=== PATIENT | male | born 1975 | race Caucasian/White ===

== ENCOUNTER → 2016-05-30 | Outpatient (CLI) | payer MEDICARE, MEDICAID ==
[~2016-05-30] MED LIST: ACET50TA PO; ADVA115INH INH; ALBU0.084 INH; DEPA125C PO; KEPP500T5 PO; MIRA33504 PO; NASOCORT AQ; OMEP40CA2 PO; PROAAER INH; SYNT88TA2 PO
== END ==
LOC: M LAB 11:57
PROVIDERS: ATTEND Physician Assistant Medical
DX: Z79.899 Other long term (current) drug therapy (principal)

== ENCOUNTER → 2016-10-21 | Outpatient (CLI) | payer MEDICARE, MEDICAID | LOC: M LAB 10:19 | PROVIDERS: ATTEND Physician Assistant Medical | DX: R56.9 Unspecified convulsions (principal) ==

== ENCOUNTER → 2016-10-30 | Outpatient (CLI) | payer MEDICARE, MEDICAID ==
--- NOTE | 2016-11-29 00:47 | ECWPNPC ---
PATIENT NAME: ANISH MOTA : 1975 GENDER: MALE VISIT DATE: 10/30/2016 DISCHARGE DATE: 10/30/16 1507 VISIT LOCKED DATE TIME: PHYSICIAN: JOSE MCDONOUGH RESOURCE: JOSE MCDONOUGH REASON FOR APPOINTMENT 1. LOW BACK PAIN HISTORY OF PRESENT ILLNESS TODAY'S VISIT: NOTES: REFERRED BY Yesy SPRINGER PA-C AT [facility] FOR LOW BACK PAIN.WAS PREVIOUSLY SEEN BY Yesy ENGLISH HERE AT THE PAIN CLINIC FOR THIS PROBLEM ON 09/21/15. HE DID NOT RETURN FOR HISFOLLOWUP AND THOUGHT WE COULD NOT DO ANYTHING TO HELP. HAS HAD INCREASED PAIN OVER THE LAST YEAR. WORSE WITH PROLONGED WALKING, PROLONGED STANDING, PROLONGED SITTING. EVER IS CENTERD ACROSS THE BACK WITH RADIATION TO LEFT LEG TO LEVEL OF KNEE. DEV N IN LEFT LEG TO FOOT. IS HAVING WEAKNESS IN LEFT LEG WHICH SEEMS TO BE GETTING WORSE. NO RECENT FALLS. NO B/B ISSUESNO PT, NO CHIRO, NO INJECTION TX. HEAT CAN HELP. SLEEP IS AFFECTS WHEN ATTEMPTING TO TURN OVER. . NEW PATIENT CONSULT: WHEN DID YOUR PAIN FIRST START? . BRIEFLY DESCRIBE HOW YOUR PAIN STARTED? . HOW DOES YOUR PAIN CHANGE WITH TIME? . DOES YOUR PAIN AWAKEN YOU FROM SLEEP? . HOW MANY HOURS OF SLEEP DO YOU NORMALLY GET? . ANY DIAGNOSTIC TESTING? . FACILITY WHERE TESTS WERE DONE? ____. PAIN TREATMENT TREATMENT YES CANCER HAVE YOU EVER HAD ANY TYPE OF CANCER?NO NO. PAIN SCREENING: PATIENT HAS A COMPLAINT OF ACUTE OR CHRONIC PAIN :YES FALL RISK SCREENING: SCREENING :NO FALLS IN THE PAST YEAR VELIZ INVENTORY: QUESTIONNAIRE ASSESSEDNO DID NOT COMPLETE INVENTORY SCORE VALUE CALCULATED NO DENIES SUICIDAL OR HOMICIDAL IDEATION CURRENT MEDICATIONS TAKING DEPAKOTE SPRINKLES 125 MG CAPSULE SPRINKLE 4 CAPSULES P.O. IN THE A.M. 4 CAPS AT NOON, 4 CAPS AT DINNER, 4 CAPS AT BEDTIME (DR. WAGNER) TAKING GLUCOMETER 1 METER TEST WHEN DIZZINESS TOPICAL USE WITH STRIPS WITH DIZZINESS TAKING LANCET DEVICE 1 LANCET LANCET 1 LANCET WITH BLOOD SUGAR TESTING INTRADERMALLY WITH EPISODES TAKING BLOOD GLUCOSE TEST STRIP 1 STRIP WITH METER WITH METER WHEN FEELING POORLY DX 780.4 TAKING OMEPRAZOLE 40MG 40 MG TABLET 1 TAB ORAL ONCE A DAY TAKING BREO ELLIPTA 100-25 MCG/INH AEROSOL POWDER BREATH ACTIVATED 1 PUFF INHALATION ONCE A DAY TAKING NASACORT AQ 55 MCG/ACT AEROSOL SOLUTION 2 PUFFS IN EACH NOSTRIL NASALLY ONCE A DAY NEEDED TAKING ALBUTEROL SULFATE (2.5 MG/3ML) 0.083% NEBULIZATION SOLUTION 3 ML PULMONARY INHALATION THREE TIMES A DAY TAKING PROAIR HFA 108 (90 BASE) MCG/ACT AEROSOL SOLUTION 2 PUFFS NEEDED INHALATION QID PRN DISCONTINUED KEPPRA [address] WAGNER 1 TABLET ORALLY TWICE DAILY (BERNARD) DISCONTINUED MIRALAX . PACKET 1 PACKET MIXED WITH 8 OUNCES OF FLUID ORALLY ONCE A DAY DISCONTINUED IBUPROFEN 600 MG TABLET 1 TABLET ORALLY THREE TIMES A DAY NEEDED DISCONTINUED BACLOFEN 10 MG TABLET 1 TABLET WITH FOOD OR MILK ORALLY THREE TIMES A DAY DISCONTINUED MELOXICAM 15 MG TABLET 1 TABLET ORALLY ONCE A DAY MEDICATION LIST REVIEWED AND RECONCILED WITH THE PATIENT PAST MEDICAL HISTORY ASTHMA EPILEPSY- F/W DR. WAGNER CELLULITIS OF LEFT PRE-AURICULAR REGION RESOLVED S/P SEBACEOUS CYST REMOVAL HEMMORRHOIDS HYPOTHYROIDISM HYPOGLYCEMIC EPISODES W/O HYPERGLYCEMIA MIGRAINE CERVICALGIA LOW BACK PAIN ALLERGIES DILANTIN: RASH: ALLERGY CODEINE PHOSPHATE (FOR ALLERGIES USE ONLY): RASH: ALLERGY VICODIN: NAUSEA/VOMITING: CONTRAINDICATION SURGICAL HISTORY DOUBLE HERNIA REPAIR 2012 LEFT KNEE MNISCUS REPAIR 2014 FAMILY HISTORY FATHER: ALIVE 71 YRS MOTHER: ALIVE 68 YRS, DIAGNOSED WITH CANCER 2 BROTHER(S) - HEALTHY. SOCIAL HISTORY GENERAL: TOBACCO USE ARE YOU A:NONSMOKER ALCOHOL SCREENING POINTS1 INTERPRETATIONNEGATIVE RECREATIONAL DRUG USE DRUG USE?NO CAFFEINE CAFFEINE USE?YES HOW OFTEN AND HOW MUCH? COFFEE DAILY LEARNING BARRIERS / SPECIAL NEEDS BARRIERS TO LEARNING?NO HEARING IMPAIRED?NO VISION IMPAIRED?YES : CORRECTIVE LENSES READINESS TO LEARN?YES LEARNING PREFERENCES?NO SPECIAL DEVICES?NO PAIN CLINIC PFS, CLERGY, PUBLIC HEALTH REFERRALS PFS REFERRAL NEEDED?NO CLERGY REFERRAL NEEDED?NO PUBLIC HEALTH REFERRAL NEEDED?NO WAS THE PROVIDER NOTIFIED OF ANY PERTINENT INFO?NO HAS THE PATIENT BEEN EDUCATED REGARDING HIS/HER PLAN OF CARE?YES HAS THE PATIENT BEEN EDUCATED REGARDING PAIN, THE RISK FOR PAIN, THE IMPORTANCE OF EFFECTIVE PAIN MANAGEMENT, AND THE PAIN ASSESSMENT PROCESS?YES PATIENT: ____. ADVANCE DIRECTIVES HEALTH CARE PROXY?NO WOULD YOU LIKE MORE INFORMATION?NO LIVE ALONE. HOSPITALIZATION/MAJOR DIAGNOSTIC PROCEDURE DENIES PAST HOSPITALIZATION REVIEW OF SYSTEMS REVIEWED BY: PROVIDER: JOSE MORA . CONSTITUTIONAL: ANY CHANGE IN YOUR MEDICAL CONDITION? NO . CHILLS NO . FEVER NO . INFECTION: DO YOU HAVE NEW INFECTIONS? NO . DO YOU HAVE HISTORY OF MRSA? NO . MUSCULOSKELETAL: ANY NEW PATTERNS OF PAIN OR NUMBNESS? NO . SYTEMIC LUPUS NO . GASTROENTEROLOGY: ANY NEW CHANGE IN BOWEL CONTROL? NO . BARRETTS ESOPHAGUS NO . CIRRHOSIS NO . HEPATITIS NO . LIVER FAILURE NO . ACID REFLUX YES, ON MEDICATION . UNEXPLAINED WEIGHT LOSS NO . GENITOURINARY: ANY NEW CHANGE IN BLADDER CONTROL? NO . IS THERE A CHANCE YOU COULD BE ? NO . HEMATOLOGY/LYMPH: DO YOU TAKE ANY BLOOD THINNERS? (FOR EXAMPLE- COUMADIN, PLAVIX, AGGRENOX, PLATEL, PRADAXA, OR XARELTO) NO . WHEN WAS YOUR LAST DOSE? DATE: TIME: . LOW PLATELET COUNT NO . SICKLE CELL DISEASE NO . VON WILLIEBRANDS NO . FACTOR V LEIDEN NO . THALLASEMIA NO . ANEMIA NO . EASY BRUISING NO . NEUROLOGY: ANY NEW SEIZURES? HX OF SEIZURES - FOLLOWED CLOSELY BY NEUROLOGY . MYAASTHENIA GRAVIS NO . CARDIOLOGY: DO YOU HAVE A PACEMAKER OR DEFIBRILLATOR? NO . ANGINA NO . HEART ATTACK NO . HEART SURGERY NO . CONGESTIVE HEART FAILURE/FLUID OVERLOAD NO . CHEST PAIN NO . HIGH BLOOD PRESSURE NO . IRREGULAR HEART BEAT NO . RESPIRATORY: HAVE YOU BEEN SICK IN THE PAST WEEK? NO . FEVER NO . FLU LIKE SYMPTOMS? NO . CPAP NO . BYPAP NO . ASTHMA YES - ON INHALER, AND MEDS UNDER GOOD CONTROL . EMPHYSEMA NO . CHRONIC LUNG DISEASES NO . SHORTNESS OF BREATH ON EXERTION NO . DO YOU USE ANY TYPE OF TOBACCO (SMOKE, SMOKELESS, CHEW)? NO . COUGH NO . SNORING NO . INTEGUMENTARY: DO YOU HAVE ANY RASHES OR OPEN SORES? NO . ALLERGIC/IMMUNO: ARE YOU ALLERGIC TO SHELLFISH OR IV DYE? NO . ANY NEW ALLERGIES? NO . PSYCHIATRIC: DO YOU HAVE THOUGHTS OF HURTING YOURSELF OR SOMEONE ELSE? NO . ARE YOU ABUSED, NEGLECTED, OR IN AN UNSAFE ENVIRONMENT? NO . ENDOCRINOLOGY: ARE YOU DIABETIC? NO . THYROID DISORDER HYPOTHYROID- HX OF NO LONGER BEING TREATED FOR IT. . OTHER: DO YOU NEED ANY PRESCRIPTIONS? NO . IF YES, PLEASE LIST: ____ . ANY NEW PROBLEMS WITH YOUR MEDICATIONS? NO . WHEN DID YOU LAST EAT? ____ . WHEN DID YOU LAST DRINK? ____ . WHAT DID YOU LAST DRINK? ____ . NAME OF PERSON DRIVING YOU HOME? ____ . DO YOU HAVE ANY OTHER QUESTIONS OR CONCERNS YES, WHAT CAN I DO FOR MY BACK PAIN WHILE ON DEPAKOTE? . VITAL SIGNS WT 269.0 LBS, HT 66 IN, BMI 43.41 INDEX, BP 152/93 MM HG, HR 62 /MIN, RR 18 /MIN, TEMP 98.1 F, OXYGEN SAT % 96%, NA INITIALS TL 1338, REVIEWED BY: CM. EXAMINATION GENERAL EXAMINATION: GENERAL APPEARANCE:COLOR PALE. PSYCHALERT , ORIENTED X 3 , SPEACH SLOW AND DELIBERATE. HEENT:NORMOCEPHALIC, NO LYMPHADENOPATHY, NO THYROMEGLY. THICK NECK IS NOTED. LUNGS:CLEAR TO AUSCULTATION BILATERALLY, NO WHEEZES, RALES OR RHONCHI. HEART:HEART RATE REGULAR, NORMAL S1S2, NO MURMURS, CLICK OR RUBS, NO CAROTID BRUITS. MUSCULOSKELETAL:MUSCLE STRENGTH TESTING 5/5 BILATERAL UPPER AND LOWER EXTREMITES FLEX C PAIN TO 90, UNABLE TO EXTEND, LSP/LSA, NO SIJ, SLR 20 ON LEFT, OK OF RIGHT + POATRICKS ON LEFT.. NEUROLOGIC EXAM:NO SENSORY DEF. DTRS 1=+U/D. TOES DOWN. ASSESSMENTS LUMBAR DEGENERATIVE DISC DISEASE - M51.36 (PRIMARY) DISC DISPLACEMENT, LUMBAR - M51.26 LUMBAR RADICULOPATHY - M54.16 TREATMENT LUMBAR DEGENERATIVE DISC DISEASE INJECTION FACET JOINT/NERVE LUMBAR/SACRALJOSE MCDONOUGH 10/30/2016 2:49:44 PM > THERAPEUTIC LUMBAR FACET BLOCK LEFT , L3-4, L4-5 AND L5-S1 NOTES: FACET JOINT INJECTION MATERIAL WAS PRINTED, FALLS CARE PLAN: 1. RECOMMEND REMOVING ALL THROW RUGS. 2. RECOMMEND NIGHT LIGHTS 3. RECOMMEND WEARING RUBBER SOLED SHOES AND TO NOT GO BAREFOOT. 4.. ADVISED TO CHANGE POSITION SLOWLY FROM SUPINE TO STANDING TO AVOID DIZZINESS. , #128 - SCREENING BMI AND F/U PLAN IN : BMI ABOVE NORMAL TODAY. DISCUSSED WITH PATIENT NUTRITIONAL FOOD CHOICES TO ASSIST WITH WEIGHT LOSS. RECCOMMENDED REDUCING SALT, SUGAR, SODA INTAKE. RECOMMEND INCREASE ACTIVITY TO INCLUDE WALKING ON A REGULAR BASIS. PROCEDURE CODES FA211 ESTABILISHED PATIENT [facility] FACILITY CHARGE G8783 BP SCR PRFRM RCMDD DEFIND SCR INTVL G8730 PAIN ASSESS POS TOOL F/U PLAN DOC 3016F PT SCRND UNHLTHY [place] USE 1124F ACP DISCUSS-NO DSCNMKR DOCD 1036F TOBACCO NON-USER 0518F FALL PLAN OF CARE DOCD G8427 DOC MEDS VERIFIED W/PT OR RE G8417 BMI >=30 CALCUATE W/FOLLOWUP 3288F FALL RISK ASSESSMENT DOCD DISPOSITION & COMMUNICATION FOLLOW UP AFTER INJECTION (REASON: CHECK AUTH FOR LEFT THERAPEUTIC LUMBAR FACET BLOCK L3-4, L4-5, AND L5-S1 AND FOR PHYSICAL THERAPY) ELECTRONICALLY SIGNED BY AMADOR MARINA ON 11/28/2016 AT 07:11 PM EDT DISCLAIMER : THIS IS A VISIT SUMMARY EXTRACTED FROM THE [employer] CHART. IT IS NOT A COPY OF THE [employer] PROGRESS NOTE. TEO
== END ==
LOC: M PAIN 13:20
PROVIDERS: ATTEND Nurse Practitioner Family
DX: M51.36 Other intervertebral disc degeneration, lumbar region (principal); M51.26 Other intervertebral disc displacement, lumbar region; M54.16 Radiculopathy, lumbar region; Z79.899 Other long term (current) drug therapy; Z88.5 Allergy status to narcotic agent

== ENCOUNTER 2016-11-07 08:52 | Outpatient (RCR) | payer MEDICARE, MEDICAID | END 2016-11-11 | LOC: M PT 08:52 | PROVIDERS: ATTEND Nurse Practitioner Family | DX: Z51.89 Encounter for other specified aftercare (principal); M51.36 Other intervertebral disc degeneration, lumbar region; M51.26 Other intervertebral disc displacement, lumbar region; M54.16 Radiculopathy, lumbar region | CPT/HCPCS: 97110; 97162; G8978; G8979 ==

== ENCOUNTER → 2016-11-18 | Outpatient (CLI) | payer MEDICARE, MEDICAID ==
[~2016-11-18] MED LIST changes: +ISOVUE-M 300 61% 15ML VIAL (Q9967) As Ordered ONE; +LIDOCAINE 1% SDV INJ 30 ML VIAL As Ordered ONE; +MIDAZOLAM INJ 2 MG/2 ML VIAL (J2250) As Ordered ONE; +fentaNYL 100 MCG/2 ML INJECTION (J3010) As Ordered ONE; +methylPREDNISolone SUSP 40 MG/ML (DEPO-medrol) VIAL (J1030) As Ordered ONE
--- NOTE | 2016-11-18 17:38 | REP ---
FLUOROSCOPIC GUIDANCE LUMBAR SPINE EPIDURAL INJECTION: 11/18/2016. Clinical history: Low back pain. Findings: Three views from C-arm fluoroscopy provided to Dr. Rehman of the pain clinic for lumbar epidural injection. Initial view is a lateral view showing needle at the L5-S1 level. The second image is a posterior view with the needle to the left of midline below the lamina and spinous process of L5 with epidural contrast adjacent. Third image shows needle removed. Fluoroscopic time: 10 seconds. Signed by Wolf Rocha MD 11/19/2016 10:07 A
--- NOTE | 2016-12-02 00:10 | ECWPNPC ---
PATIENT NAME: ANISH MOTA : 1975 GENDER: MALE VISIT DATE: 11/18/2016 DISCHARGE DATE: 11/18/16 1233 VISIT LOCKED DATE TIME: PHYSICIAN: MARIELLE PENNY RESOURCE: MARIELLE PENNY REASON FOR APPOINTMENT 1. L5-S1 LESI HISTORY OF PRESENT ILLNESS HISTORY OF PRESENT ILLNESS: PAIN THE PATIENT DESCRIBES THE PAIN... FALL RISK SCREENING: SCREENING :NO FALLS IN THE PAST YEAR CURRENT MEDICATIONS TAKING DEPAKOTE SPRINKLES 125 MG CAPSULE SPRINKLE 4 CAPSULES P.O. IN THE A.M. 4 CAPS AT NOON, 4 CAPS AT DINNER, 4 CAPS AT BEDTIME (DR. WAGNER), NOTES: 11-18-16 066 TAKING GLUCOMETER 1 METER TEST WHEN DIZZINESS TOPICAL USE WITH STRIPS WITH DIZZINESS, NOTES: 11-12-16 TAKING LANCET DEVICE 1 LANCET LANCET 1 LANCET WITH BLOOD SUGAR TESTING INTRADERMALLY WITH EPISODES TAKING BLOOD GLUCOSE TEST STRIP 1 STRIP WITH METER WITH METER WHEN FEELING POORLY DX 780.4 TAKING OMEPRAZOLE 40MG 40 MG TABLET 1 TAB ORAL ONCE A DAY, NOTES: 11-12-16 TAKING BREO ELLIPTA 100-25 MCG/INH AEROSOL POWDER BREATH ACTIVATED 1 PUFF INHALATION ONCE A DAY, NOTES: 11-16-16 0900 TAKING NASACORT AQ 55 MCG/ACT AEROSOL SOLUTION 2 PUFFS IN EACH NOSTRIL NASALLY ONCE A DAY NEEDED, NOTES: 11-17-16 07 TAKING ALBUTEROL SULFATE (2.5 MG/3ML) 0.083% NEBULIZATION SOLUTION 3 ML PULMONARY INHALATION THREE TIMES A DAY, NOTES: 11-12-16899 TAKING PROAIR HFA 108 (90 BASE) MCG/ACT AEROSOL SOLUTION 2 PUFFS NEEDED INHALATION QID PRN, NOTES: 11-17-16 09 MEDICATION LIST REVIEWED AND RECONCILED WITH THE PATIENT PAST MEDICAL HISTORY ASTHMA EPILEPSY- F/W DR. WAGNER CELLULITIS OF LEFT PRE-AURICULAR REGION RESOLVED S/P SEBACEOUS CYST REMOVAL HEMMORRHOIDS HYPOTHYROIDISM HYPOGLYCEMIC EPISODES W/O HYPERGLYCEMIA MIGRAINE CERVICALGIA LOW BACK PAIN ALLERGIES DILANTIN: RASH: ALLERGY CODEINE PHOSPHATE (FOR ALLERGIES USE ONLY): RASH: ALLERGY VICODIN: NAUSEA/VOMITING: CONTRAINDICATION SURGICAL HISTORY DOUBLE HERNIA REPAIR 2013 LEFT KNEE MNISCUS REPAIR 2014 REVIEW OF SYSTEMS REVIEWED BY: PROVIDER: . CONSTITUTIONAL: ANY CHANGE IN YOUR MEDICAL CONDITION? NO . CHILLS NO . FEVER NO . INFECTION: DO YOU HAVE NEW INFECTIONS? NO . DO YOU HAVE HISTORY OF MRSA? NO . MUSCULOSKELETAL: ANY NEW PATTERNS OF PAIN OR NUMBNESS? NO . GASTROENTEROLOGY: ANY NEW CHANGE IN BOWEL CONTROL? NO . GENITOURINARY: ANY NEW CHANGE IN BLADDER CONTROL? NO . IS THERE A CHANCE YOU COULD BE ? NO . HEMATOLOGY/LYMPH: DO YOU TAKE ANY BLOOD THINNERS? (FOR EXAMPLE- COUMADIN, PLAVIX, AGGRENOX, PLATEL, PRADAXA, OR XARELTO) NO . WHEN WAS YOUR LAST DOSE? DATE: TIME: . NEUROLOGY: HAVE YOU FALLEN IN THE PAST 6 MONTHS? NO . ANY NEW EXTREMITY NUMBNESS OR WEAKNESS? NO . CARDIOLOGY: DO YOU HAVE A PACEMAKER OR DEFIBRILLATOR? NO . RESPIRATORY: HAVE YOU BEEN SICK IN THE PAST WEEK? NO . FEVER NO . FLU LIKE SYMPTOMS? NO . COUGH NO . INTEGUMENTARY: DO YOU HAVE ANY RASHES OR OPEN SORES? NO . ALLERGIC/IMMUNO: ARE YOU ALLERGIC TO SHELLFISH OR IV DYE? NO . ANY NEW ALLERGIES? NO . PSYCHIATRIC: DO YOU HAVE THOUGHTS OF HURTING YOURSELF OR SOMEONE ELSE? NO . ARE YOU ABUSED, NEGLECTED, OR IN AN UNSAFE ENVIRONMENT? NO . ENDOCRINOLOGY: ARE YOU DIABETIC? NO . OTHER: DO YOU NEED ANY PRESCRIPTIONS? NO . IF YES, PLEASE LIST: ____ . ANY NEW PROBLEMS WITH YOUR MEDICATIONS? NO . WHEN DID YOU LAST EAT? ____930 LAST NIGHT . WHEN DID YOU LAST DRINK? ____8 AM THIS MORNING WATER . WHAT DID YOU LAST DRINK? ____ . NAME OF PERSON DRIVING YOU HOME? ____CINDY PTS. MOTHER . DO YOU HAVE ANY OTHER QUESTIONS OR CONCERNS NO . VITAL SIGNS WT 260 LBS, HT 66 IN, BMI 41.96 INDEX, BP 161/94 MM HG, HR 70 /MIN, RR 18 /MIN, TEMP 98.3 F, OXYGEN SAT % 99%, NA INITIALS TR 1015, REVIEWED BY: KG. ASSESSMENTS INTERVERTEBRAL DISC DISORDERS WITH RADICULOPATHY, LUMBOSACRAL REGION - M51.17 (PRIMARY) PROCEDURES PRE PROCEDURE DIAGNOSIS LUMBAR DISC DISORDER WITH RADICULOPATHY POST PROCEDURE DIAGNOSIS LUMBAR DISC DISORDER WITH RADICULOPATHY PROCEDURE LUMBAR EPIDURAL STEROID INJECTION UNDER FLUOROSCOPIC GUIDANCE SURGEON DR. MARIELLE PENNY TECHNICAL MANAGER CHEMICAL PLANT NONE ANESTHESIA LOCAL WITH IV SEDATION PRE PROCEDURE NOTE THE PATIENT HAS A HISTORY OF CHRONIC LOW BACK PAIN. I EVALUATE THE PATIENT AND REVIEWED THE CHART. I WENT OVER THE RISKS, ALTERNATIVES, AND BENEFITS ASSOCIATED WITH THIS PROCEDURE. PATIENT WOULD LIKE TO MOVE FORWARD WITH IV SEDATION DUE TO DISCOMFORT, PAIN AND ANXIETY ASSOCIATED WITH THE PROCEDURE. THE PATIENT WOULD LIKE TO PROCEED AND GIVE CONSENT TO PERFORMED THE PROCEDURE. THE PATIENT DENIES UNEXPLAINABLE WEIGHT LOSS, FEVER, CHILLS, OR NEW CHANGES IN URINARY OR BOWEL CONTROL. DESCRIPTION OF PROCEDURE THE PATIENT WAS BROUGHT TO THE PROCEDURE ROOM AND PLACED IN THE PRONE POSITION. THE LUMBOSACRAL AREA WAS CLEANED WITH BETADINE SOLUTION AND DRAPED ASEPTICALLY. THE PROCEDURE WAS DONE UNDER STERILE CONDITIONS. I CHECKED LATERALITY AND THE LEVEL WHERE THE PROCEDURE WAS GOING TO BE PERFORMED WITH THE PATIENT AND THE SUPPORTING STAFF AT THE MOMENT OF THE TIME OUT IN THE PROCEDURE ROOM. UNDER FLUOROSCOPIC GUIDANCE, THE TARGET POINT WAS SELECTED AT THE INTERLAMINAR LEVEL OF L5-S1. LIDOCAINE WAS USED TO NUMB THE SKIN AND THE SUBCUTANEOUS TISSUE BELOW IT. EPIDURAL TUOHY NEEDLE, 17-GAUGE, WAS ADVANCED UNDER FLUOROSCOPIC GUIDANCE AND FOLLOWING PATIENT FEEDBACK UNTIL THE EPIDURAL SPACE WAS REACHED, 7 CM DEEP INTO THE SKIN BY THE LOSS OF RESISTANCE TECHNIQUE. ISOVUE M DYE 30%, 0.25 ML, WAS INJECTED SHOWING ADEQUATE SPREAD OF THE DYE. THEN, A SOLUTION OF 3 ML OF NORMAL SALINE WITH DEPO-MEDROL 60 MG WAS INJECTED SLOWLY FOLLOWING PATIENT FEEDBACK. PATIENT RECEIVED VERSED 2 MG AND FENTANYL 100 MCG IV DIVIDED DOSES THERE WAS NO EVIDENCE OF BLOOD, PARESTHESIA OR CEREBROSPINAL FLUID DURING THE PROCEDURE. THE PATIENT WAS SENT TO THE RECOVERY ROOM. THE PATIENT WAS MOVING THE EXTREMITIES AND DOING WELL. THERE WAS NO COMPLICATION DURING THE PROCEDURE. FLUOROSCOPY TIME WAS 10 SECONDS. FACE TO FACE TIME WAS 12 MINUTES POST PROCEDURE NOTE THE PATIENT WILL BE SEEN IN A FOLLOW UP IN THE NEXT FEW WEEKS. INSTRUCTIONS WERE GIVEN, QUESTIONS WERE ANSWERED, AND THE PATIENT EXPRESSED UNDERSTANDING AND AGREES WITH THE PLAN. I, CRESENCIO ALLEN, DOCUMENTED THE ABOVE INFORMATION ACTING A SCRIBE FOR DR. PENNY. I HAVE REVIEWED THE ABOVE DOCUMENT, WRITTEN BY CRESENCIO BOOGIE AND I VERIFY THAT IT IS [facility] FLUORO GUIDE SPINE INJECTION (PAIN)[id number] PROCEDURE CODES 75970 LUMBAR/SACRAL W/ IMAGING 6045F RADXPS IN END [id number] PXD 04720 MOD SED SAME PHYS/QHP 5/>YRS DISPOSITION & COMMUNICATION FOLLOW UP 3 WEEKS ELECTRONICALLY SIGNED BY MARIELLE PENNY MD ON 12/01/2016 AT 03:58 PM EDT DISCLAIMER : THIS IS A VISIT SUMMARY EXTRACTED FROM THE [employer] CHART. IT IS NOT A COPY OF THE [employer] PROGRESS NOTE. MTDD
== END ==
LOC: M PAIN 10:20
PROVIDERS: ATTEND Anesthesiology
DX: G89.29 Other chronic pain (principal); M51.17 Intervertebral disc disorders with radiculopathy, lumbosacral region; M54.5 Low back pain; Z79.899 Other long term (current) drug therapy; Z88.5 Allergy status to narcotic agent; Z88.8 Allergy status to other drugs, medicaments and biological substances
CPT/HCPCS: 62323; 99152; J1030; J2250; J3010; Q9967

== ENCOUNTER → 2016-12-02 | Outpatient (CLI) | payer MEDICARE, MEDICAID ==
[~2016-12-02] MED LIST changes: -ISOVUE-M 300 61% 15ML VIAL (Q9967) As Ordered ONE; -LIDOCAINE 1% SDV INJ 30 ML VIAL As Ordered ONE; -MIDAZOLAM INJ 2 MG/2 ML VIAL (J2250) As Ordered ONE; -fentaNYL 100 MCG/2 ML INJECTION (J3010) As Ordered ONE; -methylPREDNISolone SUSP 40 MG/ML (DEPO-medrol) VIAL (J1030) As Ordered ONE
--- NOTE | 2016-12-15 23:48 | ECWPNPC ---
PATIENT NAME: ANISH MOTA : 1975 GENDER: MALE VISIT DATE: 12/02/2016 DISCHARGE DATE: 12/02/1631 VISIT LOCKED DATE TIME: PHYSICIAN: JOSE MCDONOUGH RESOURCE: JOSE MCDONOUGH REASON FOR APPOINTMENT 1. POST FACET HISTORY OF PRESENT ILLNESS FALL RISK SCREENING: SCREENING :NO FALLS IN THE PAST YEAR TODAY'S VISIT: NOTES: RATES PAIN LEVEL TODAY 6/10. DESCRIBES PAIN INTERMITTANT, BURNING, SHARP AND STABBING AND WITH SOME SHOOTING PAIN . HAS INTERMITTANT NUMBNESS AND TINGLING INTO LEFT LEG. THIS WAS CONSTANT PRIOR TO INJECTIONIS S/P INTRALAMINAR EPIDURAL WITH IV SEDATION. NOTES MINIMAL PAIN FOR A FEW DAYS, BUT THEN PAIN WAS NOT QUITE INTENSE. IS REPORTING A NEW EXPERIENCE OF DISCOMFORT HIGHER ALONG THE SPINE. . CURRENT MEDICATIONS TAKING DEPAKOTE SPRINKLES 125 MG CAPSULE SPRINKLE 4 CAPSULES P.O. IN THE A.M. 4 CAPS AT NOON, 4 CAPS AT DINNER, 4 CAPS AT BEDTIME (DR. WAGNER) TAKING GLUCOMETER 1 METER TEST WHEN DIZZINESS TOPICAL USE WITH STRIPS WITH DIZZINESS TAKING LANCET DEVICE 1 LANCET LANCET 1 LANCET WITH BLOOD SUGAR TESTING INTRADERMALLY WITH EPISODES TAKING BLOOD GLUCOSE TEST STRIP 1 STRIP WITH METER WITH METER WHEN FEELING POORLY DX 780.4 TAKING OMEPRAZOLE 40MG 40 MG TABLET 1 TAB ORAL ONCE A DAY TAKING BREO ELLIPTA 100-25 MCG/INH AEROSOL POWDER BREATH ACTIVATED 1 PUFF INHALATION ONCE A DAY TAKING NASACORT AQ 55 MCG/ACT AEROSOL SOLUTION 2 PUFFS IN EACH NOSTRIL NASALLY ONCE A DAY NEEDED TAKING ALBUTEROL SULFATE (2.5 MG/3ML) 0.083% NEBULIZATION SOLUTION 3 ML PULMONARY INHALATION THREE TIMES A DAY TAKING PROAIR HFA 108 (90 BASE) MCG/ACT AEROSOL SOLUTION 2 PUFFS NEEDED INHALATION QID PRN MEDICATION LIST REVIEWED AND RECONCILED WITH THE PATIENT PAST MEDICAL HISTORY ASTHMA EPILEPSY- F/W DR. WAGNER CELLULITIS OF LEFT PRE-AURICULAR REGION RESOLVED S/P SEBACEOUS CYST REMOVAL HEMMORRHOIDS HYPOTHYROIDISM HYPOGLYCEMIC EPISODES W/O HYPERGLYCEMIA MIGRAINE CERVICALGIA LOW BACK PAIN ALLERGIES DILANTIN: RASH: ALLERGY CODEINE PHOSPHATE (FOR ALLERGIES USE ONLY): RASH: ALLERGY VICODIN: NAUSEA/VOMITING: CONTRAINDICATION LIDOCAINE PATCH: ITCHING: ALLERGY REVIEW OF SYSTEMS REVIEWED BY: PROVIDER: JOSE MORA . CONSTITUTIONAL: ANY CHANGE IN YOUR MEDICAL CONDITION? NO . CHILLS NO . FEVER NO . INFECTION: DO YOU HAVE NEW INFECTIONS? NO . DO YOU HAVE HISTORY OF MRSA? NO . MUSCULOSKELETAL: ANY NEW PATTERNS OF PAIN OR NUMBNESS? NO . GASTROENTEROLOGY: ANY NEW CHANGE IN BOWEL CONTROL? NO . GENITOURINARY: ANY NEW CHANGE IN BLADDER CONTROL? NO . IS THERE A CHANCE YOU COULD BE ? NO . HEMATOLOGY/LYMPH: DO YOU TAKE ANY BLOOD THINNERS? (FOR EXAMPLE- COUMADIN, PLAVIX, AGGRENOX, PLATEL, PRADAXA, OR XARELTO) NO . WHEN WAS YOUR LAST DOSE? DATE: TIME: . NEUROLOGY: HAVE YOU FALLEN IN THE PAST 6 MONTHS? NO . ANY NEW SEIZURES? NONE RECENTLY . ANY NEW EXTREMITY NUMBNESS OR WEAKNESS? NO . CARDIOLOGY: DO YOU HAVE A PACEMAKER OR DEFIBRILLATOR? NO . RESPIRATORY: HAVE YOU BEEN SICK IN THE PAST WEEK? NO . FEVER NO . FLU LIKE SYMPTOMS? NO . COUGH NO . INTEGUMENTARY: DO YOU HAVE ANY RASHES OR OPEN SORES? NO . ALLERGIC/IMMUNO: ARE YOU ALLERGIC TO SHELLFISH OR IV DYE? NO . ANY NEW ALLERGIES? NO . PSYCHIATRIC: DO YOU HAVE THOUGHTS OF HURTING YOURSELF OR SOMEONE ELSE? NO . ARE YOU ABUSED, NEGLECTED, OR IN AN UNSAFE ENVIRONMENT? NO . ENDOCRINOLOGY: ARE YOU DIABETIC? NO . OTHER: DO YOU NEED ANY PRESCRIPTIONS? NO . IF YES, PLEASE LIST: ____ . ANY NEW PROBLEMS WITH YOUR MEDICATIONS? NO . WHEN DID YOU LAST EAT? ____ . WHEN DID YOU LAST DRINK? ____ . WHAT DID YOU LAST DRINK? ____ . NAME OF PERSON DRIVING YOU HOME? ____ . DO YOU HAVE ANY OTHER QUESTIONS OR CONCERNS NO . VITAL SIGNS WT 260 LBS, HT 66 IN, BMI 41.96 INDEX, BP 167/99 MM HG, HR 58 /MIN, RR 16 /MIN, TEMP 97.4 F, OXYGEN SAT % 98, REVIEWED BY: NL. EXAMINATION GENERAL EXAMINATION: GENERAL APPEARANCE:COLOR PALE. PSYCHALERT , ORIENTED X 3 , SPEACH SLOW AND DELIBERATE, GOOD EYE CONTACT. HEENT:NORMOCEPHALIC, NO LYMPHADENOPATHY, NO THYROMEGLY. THICK NECK IS NOTED. LUNGS:CLEAR TO AUSCULTATION BILATERALLY, NO WHEEZES, RALES OR RHONCHI. HEART:HEART RATE REGULAR. MUSCULOSKELETAL:MUSCLE STRENGTH TESTING 5/5 BILATERAL UPPER AND LOWER EXTREMITES POINT TENDERNESS OVER LUMBAR SPINOUS PROCESSES AND ACROSS THE LUMBOSACRAL AXIS. SLOW TO RISE TO STANDING POSITION. POSTURE STOOPED. GAIT WIDE BASED, NON ANTALGIC. ASSESSMENTS LUMBAR DEGENERATIVE DISC DISEASE - M51.36 (PRIMARY) DISC DISPLACEMENT, LUMBAR - M51.26 LUMBAR RADICULOPATHY - M54.16 TREATMENT LUMBAR DEGENERATIVE DISC DISEASE TRANSFORAMINAL LUMB JOSE SADLER 12/02/2016 9:20:40 AM > L4 AND L5- S1 LEFT NOTES: START PHYSICAL THERAPY WALK EVERY DAY., OPTION FOR TRANSFORAMINAL EPIDURAL INJECTIONS WERE DISCUSSED WITH THE PATIENT. FDA CONCERNS AND WARNING WERE REVIEWED INCLUDING THE RISK OF BLEEDING, RISK OF INFECTION, RISK OF INCREASED PAIN OR NEURALGIA, AND RISK OF PARALYSIS. PATIENT'S QUESTIONS WERE ANSWERED AND HE/SHE WISHES TO MOVE FORWARD WITH EPIDURAL INJECTION. PREVENTIVE MEDICINE DISCUSSED PREPROCEDURE CARE AND TRANSFORAMINAL APPROACH/ GAVE PT AND FAMILY WRITTEN INFO / EXPRESSED UN DERSTANDING. PROCEDURE CODES FA211 ESTABILISHED PATIENT [facility] FACILITY CHARGE [id number] PAIN ASSESS POS TOOL F/U PLAN DOC G8427 DOC MEDS VERIFIED W/PT OR RE DISPOSITION & COMMUNICATION FOLLOW UP AFTER INJECTION (REASON: CHECK AUTH L4 AND L5- S1 LEFT TRANSFORAMINAL WITH IV SEDATION) ELECTRONICALLY SIGNED BY AMADOR MARINA ON 12/15/2016 AT 01:02 PM EDT DISCLAIMER : THIS IS A VISIT SUMMARY EXTRACTED FROM THE [employer] CHART. IT IS NOT A COPY OF THE [employer] PROGRESS NOTE. TEO
== END ==
LOC: M PAIN 08:40
PROVIDERS: ATTEND Nurse Practitioner Family
DX: M51.36 Other intervertebral disc degeneration, lumbar region (principal); M51.26 Other intervertebral disc displacement, lumbar region; M54.16 Radiculopathy, lumbar region; Z79.899 Other long term (current) drug therapy; Z88.5 Allergy status to narcotic agent; Z88.8 Allergy status to other drugs, medicaments and biological substances

== ENCOUNTER → 2016-12-12 | Outpatient (RCR) | payer MEDICARE, MEDICAID | LOC: M PT 11-12 09:04 | PROVIDERS: ATTEND Nurse Practitioner Family | DX: Z51.89 Encounter for other specified aftercare (principal); M51.36 Other intervertebral disc degeneration, lumbar region; M51.26 Other intervertebral disc displacement, lumbar region; M54.16 Radiculopathy, lumbar region | CPT/HCPCS: 97110; 97140; G8978; G8979 ==

== ENCOUNTER → 2016-12-19 | Outpatient (CLI) | payer MEDICARE, MEDICAID ==
[~2016-12-19] MED LIST changes: +BUPIVACAINE HCL 0.25% 30 ML VIAL As Ordered ONE; +ISOVUE-M 300 61% 15ML VIAL (Q9967) As Ordered ONE; +LIDOCAINE 1% SDV INJ 30 ML VIAL As Ordered ONE; +MIDAZOLAM INJ 2 MG/2 ML VIAL (J2250) As Ordered ONE; +dexameTHASONE 10 MG/1 ML VIAL PRES.FREE (J1100) As Ordered ONE; +fentaNYL 100 MCG/2 ML INJECTION (J3010) As Ordered ONE
--- NOTE | 2016-12-19 16:04 | REP ---
Partial lumbar spine series: Two views. . History: Injection procedure for pain. 57 seconds of fluoroscopy time is reported. Findings: A sequence of two fluoroscopically obtained last image hold procedural spot radiographs of the lumbar spine document needle position and contrast injection associated with injection procedure. Signed by Jossue Pelaez MD 12/19/2016 03:56 P
--- NOTE | 2016-12-20 00:23 | ECWPNPC ---
PATIENT NAME: ANISH MOTA : 1975 GENDER: MALE VISIT DATE: 12/19/2016 DISCHARGE DATE: 12/19/16 1606 VISIT LOCKED DATE TIME: PHYSICIAN: MARIELLE PENNY RESOURCE: MARIELLE PENNY REASON FOR APPOINTMENT 1. TRANSFORAMINAL/IV SEDATION HISTORY OF PRESENT ILLNESS HISTORY OF PRESENT ILLNESS: PAIN THE PATIENT DESCRIBES THE PAIN... FALL RISK SCREENING: SCREENING :NO FALLS IN THE PAST YEAR CURRENT MEDICATIONS TAKING DEPAKOTE SPRINKLES 125 MG CAPSULE SPRINKLE 4 CAPSULES P.O. IN THE A.M. 4 CAPS AT NOON, 4 CAPS AT DINNER, 4 CAPS AT BEDTIME (DR. WAGNER), NOTES: 12/19/16 0900 TAKING GLUCOMETER 1 METER TEST WHEN DIZZINESS TOPICAL USE WITH STRIPS WITH DIZZINESS TAKING LANCET DEVICE 1 LANCET LANCET 1 LANCET WITH BLOOD SUGAR TESTING INTRADERMALLY WITH EPISODES TAKING BLOOD GLUCOSE TEST STRIP 1 STRIP WITH METER WITH METER WHEN FEELING POORLY DX 780.4 TAKING OMEPRAZOLE 40MG 40 MG TABLET 1 TAB ORAL ONCE A DAY, NOTES: 12/19/16 0700 TAKING BREO ELLIPTA 100-25 MCG/INH AEROSOL POWDER BREATH ACTIVATED 1 PUFF INHALATION ONCE A DAY, NOTES: 12/18/16 2200 TAKING NASACORT AQ 55 MCG/ACT AEROSOL SOLUTION 2 PUFFS IN EACH NOSTRIL NASALLY ONCE A DAY NEEDED, NOTES: > 1 WEEK TAKING ALBUTEROL SULFATE (2.5 MG/3ML) 0.083% NEBULIZATION SOLUTION 3 ML PULMONARY INHALATION THREE TIMES A DAY, NOTES: 12/18/16 220 TAKING PROAIR HFA 108 (90 BASE) MCG/ACT AEROSOL SOLUTION 2 PUFFS NEEDED INHALATION QID PRN, NOTES: > 1 WEEK MEDICATION LIST REVIEWED AND RECONCILED WITH THE PATIENT PAST MEDICAL HISTORY ASTHMA EPILEPSY- F/W DR. WAGNER CELLULITIS OF LEFT PRE-AURICULAR REGION RESOLVED S/P SEBACEOUS CYST REMOVAL HEMMORRHOIDS HYPOTHYROIDISM HYPOGLYCEMIC EPISODES W/O HYPERGLYCEMIA MIGRAINE CERVICALGIA LOW BACK PAIN ALLERGIES DILANTIN: RASH: ALLERGY CODEINE PHOSPHATE (FOR ALLERGIES USE ONLY): RASH: ALLERGY VICODIN: NAUSEA/VOMITING: CONTRAINDICATION LIDOCAINE PATCH: ITCHING: ALLERGY REVIEW OF SYSTEMS REVIEWED BY: PROVIDER: . CONSTITUTIONAL: ANY CHANGE IN YOUR MEDICAL CONDITION? NO . CHILLS NO . FEVER NO . INFECTION: DO YOU HAVE NEW INFECTIONS? NO . DO YOU HAVE HISTORY OF MRSA? NO . MUSCULOSKELETAL: ANY NEW PATTERNS OF PAIN OR NUMBNESS? NO . GASTROENTEROLOGY: ANY NEW CHANGE IN BOWEL CONTROL? NO . GENITOURINARY: ANY NEW CHANGE IN BLADDER CONTROL? NO . IS THERE A CHANCE YOU COULD BE ? NO . HEMATOLOGY/LYMPH: DO YOU TAKE ANY BLOOD THINNERS? (FOR EXAMPLE- COUMADIN, PLAVIX, AGGRENOX, PLATEL, PRADAXA, OR XARELTO) NO . WHEN WAS YOUR LAST DOSE? DATE: TIME: . NEUROLOGY: HAVE YOU FALLEN IN THE PAST 6 MONTHS? NO . ANY NEW EXTREMITY NUMBNESS OR WEAKNESS? NO . CARDIOLOGY: DO YOU HAVE A PACEMAKER OR DEFIBRILLATOR? NO . RESPIRATORY: HAVE YOU BEEN SICK IN THE PAST WEEK? NO . FEVER NO . FLU LIKE SYMPTOMS? NO . COUGH NO . INTEGUMENTARY: DO YOU HAVE ANY RASHES OR OPEN SORES? NO . ALLERGIC/IMMUNO: ARE YOU ALLERGIC TO SHELLFISH OR IV DYE? NO . ANY NEW ALLERGIES? NO . PSYCHIATRIC: DO YOU HAVE THOUGHTS OF HURTING YOURSELF OR SOMEONE ELSE? NO . ARE YOU ABUSED, NEGLECTED, OR IN AN UNSAFE ENVIRONMENT? NO . ENDOCRINOLOGY: ARE YOU DIABETIC? NO . OTHER: DO YOU NEED ANY PRESCRIPTIONS? NO . IF YES, PLEASE LIST: ____ . ANY NEW PROBLEMS WITH YOUR MEDICATIONS? YES DEVELOPED AN ITCHY RASH AROUND SITE OF APPLICATION OF LIDOCAINE PATCH. . WHEN DID YOU LAST EAT? ____12/18/16 2200 . WHEN DID YOU LAST DRINK? ____12/19/16 0700 . WHAT DID YOU LAST DRINK? ____WATER . NAME OF PERSON DRIVING YOU HOME? ____MOM MARILYN . DO YOU HAVE ANY OTHER QUESTIONS OR CONCERNS NO . VITAL SIGNS WT 260 LBS, HT 66 IN, BMI 41.96 INDEX, BP 149/72 MM HG, HR 73 /MIN, RR 16 /MIN, TEMP 98.1 F, OXYGEN SAT % 100%, SAFE IN ENV? (Y/N) YES, REVIEWED BY: LAS. 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 I EVALUATE THE PATIENT AND REVIEWED THE CHART. I WENT OVER THE RISKS, ALTERNATIVES, AND BENEFITS ASSOCIATED WITH THIS PROCEDURE. PATIENT WOULD LIKE TO MOVE FORWARD WITH IV SEDATION DUE TO DISCOMFORT, PAIN AND ANXIETY ASSOCIATED WITH THE PROCEDURE. THE PATIENT WOULD LIKE TO PROCEED AND GIVE CONSENT TO PERFORMED THE PROCEDURE. THE PATIENT DENIES UNEXPLAINABLE WEIGHT LOSS, FEVER, CHILLS, OR CHANGES IN URINARY OR BOWEL CONTROL DESCRIPTION OF PROCEDURE THE PATIENT WAS BROUGHT TO THE PROCEDURE ROOM AND PLACED IN THE PRONE POSITION. THE LUMBOSACRAL AREA WAS CLEANED WITH BETADINE SOLUTION AND DRAPED ASEPTICALLY. THE PROCEDURE WAS DONE UNDER STERILE CONDITIONS. I CHECKED LATERALITY AND THE LEVEL WHERE THE PROCEDURE WAS GOING TO BE PERFORMED WITH THE PATIENT AND THE SUPPORTING STAFF AT THE MOMENT OF THE TIME OUT IN THE PROCEDURE ROOM. UNDER FLUOROSCOPIC GUIDANCE, TARGETS WERE SELECTED AT THE LEFT TRANSFORAMINAL OPENING OF L5 AND LEFT TRANSFORAMINAL OPENING OF S1. TARGET POINT WAS SELECTED AFTER LATERAL ROTATION AND TILT OF THE MAGNIFIER OF THE C-ARM. LIDOCAINE 0.5% WAS USED TO NUMB THE SKIN AND THE SUBCUTANEOUS TISSUE BELOW IT. AN EPIMED INTRODUCER 18-GAUGE WAS ADVANCED UNTIL WE WENT CLOSE TO THE SELECTED TRANSFORAMINAL OPENINGS. AFTER PROPER POSITION OF THE NEEDLES WAS ACHIEVED, A 22-GAUGE EPIMED NEEDLE WAS PLACED INSIDE OF THE INTRODUCER AND ADVANCED TO THE TRANSFORAMINAL OPENING OF THE SELECTED SITES. WHEN PROPER POSITION OF THE NEEDLE WAS ACHIEVED, ISOVUE M DYE 30%, 0.25 ML, WAS INJECTED SHOWING ADEQUATE SPREAD OF THE DYE. THIS WAS DONE UNDER DIGITAL SUBTRACTION AND ANGIOGRAPHY. THERE WAS NO VASCULAR UPDATE. THEN, A SOLUTION OF 2 ML OF BUPIVACAINE 0.25% AND DEXAMETHASONE 10 MG WAS INJECTED AT EACH SITE. PATIENT RECEIVED VERSED 1 MG AND FENTANYL 100 MCG IV DIVIDED DOSES THERE WAS NO EVIDENCE OF BLOOD, PARESTHESIA OR CEREBROSPINAL FLUID DURING THE PROCEDURE. THE PATIENT WAS SENT TO THE RECOVERY ROOM. THE PATIENT WAS MOVING THE EXTREMITIES AND DOING WELL. THERE WAS NO COMPLICATION DURING THE PROCEDURE. FLUOROSCOPY TIME WAS 57 SECONDS. FACE TO FACE WAS 26 MINUTES POST PROCEDURE NOTE THE PROCEDURE DONE WAS DISCUSSED WITH THE PATIENT. THE PATIENT WILL BE SEEN IN A FOLLOW UP IN THE NEXT FEW WEEKS. INSTRUCTIONS WERE GIVEN, QUESTIONS WERE ANSWERED, AND THE PATIENT EXPRESSED UNDERSTANDING AND AGREES WITH THE PLAN. I, CRESENCIO ALLEN, DOCUMENTED THE ABOVE INFORMATION ACTING A SCRIBE FOR DR. PENNY. I HAVE REVIEWED THE ABOVE DOCUMENT, WRITTEN BY CRESENCIO BOOGIE AND I VERIFY THAT IT IS [facility]NOST[facility] FLUORO GUIDE SPINE INJECTION (PAIN)[id number] PROCEDURE CODES 06156 INJ FORAMEN EPIDURAL L/S 54567 INJ FORAMEN EPIDURAL ADD-ON 6045F RADXPS IN END [id number] PXD 32488 MOD SED SAME PHYS/QHP 5/>YRS 11174 MOD SED SAME PHYS/QHP EA DISPOSITION & COMMUNICATION FOLLOW UP 3 WEEKS ELECTRONICALLY SIGNED BY MARIELLE PENNY MD ON 12/19/2016 AT 05:23 PM EDT DISCLAIMER : THIS IS A VISIT SUMMARY EXTRACTED FROM THE [employer] CHART. IT IS NOT A COPY OF THE [employer] PROGRESS NOTE. MTDD
== END ==
LOC: M PAIN 13:00
PROVIDERS: ATTEND Anesthesiology
DX: G89.29 Other chronic pain (principal); M51.17 Intervertebral disc disorders with radiculopathy, lumbosacral region; M54.5 Low back pain; J45.909 Unspecified asthma, uncomplicated; E16.1 Other hypoglycemia; E03.9 Hypothyroidism, unspecified; Z79.84 Long term (current) use of oral hypoglycemic drugs; Z79.899 Other long term (current) drug therapy; Z88.8 Allergy status to other drugs, medicaments and biological substances; Z88.5 Allergy status to narcotic agent
CPT/HCPCS: 64483; 64484; 99152; 99153; J1100; J2250; J3010; Q9967

== ENCOUNTER 2017-01-02 12:15 | Outpatient (RCR) | payer MEDICARE, MEDICAID ==
[~2017-01-02 12:15] MED LIST changes: -BUPIVACAINE HCL 0.25% 30 ML VIAL As Ordered ONE; -ISOVUE-M 300 61% 15ML VIAL (Q9967) As Ordered ONE; -LIDOCAINE 1% SDV INJ 30 ML VIAL As Ordered ONE; -MIDAZOLAM INJ 2 MG/2 ML VIAL (J2250) As Ordered ONE; -dexameTHASONE 10 MG/1 ML VIAL PRES.FREE (J1100) As Ordered ONE; -fentaNYL 100 MCG/2 ML INJECTION (J3010) As Ordered ONE
== END 2017-01-11 ==
LOC: M PT 12:15
PROVIDERS: ATTEND Nurse Practitioner Family
DX: Z51.89 Encounter for other specified aftercare (principal); M51.36 Other intervertebral disc degeneration, lumbar region; M51.26 Other intervertebral disc displacement, lumbar region; M54.16 Radiculopathy, lumbar region
CPT/HCPCS: 97110; 97140; G8979; G8980

== ENCOUNTER → 2017-01-03 | Outpatient (CLI) | payer MEDICARE, MEDICAID ==
--- NOTE | 2017-02-01 01:20 | ECWPNPC ---
PATIENT NAME: ANISH MOTA : 1975 GENDER: MALE VISIT DATE: 01/03/2017 DISCHARGE DATE: 01/03/17 0958 VISIT LOCKED DATE TIME: PHYSICIAN: JOSE MCDONOUGH RESOURCE: JOSE MCDONOUGH REASON FOR APPOINTMENT 1. POST PROCEDURE HISTORY OF PRESENT ILLNESS HISTORY OF PRESENT ILLNESS: PAIN THE PATIENT DESCRIBES THE PAIN... FALL RISK SCREENING: SCREENING :NO FALLS IN THE PAST YEAR TODAY'S VISIT: NOTES: RATES PAIN TODAY 8/10. IS S/P LEFT TRANSFORAMINAL EPIDURAL L5-S1 ON 12/19/16. NOTES PAIN DECREASED FROM 10/10 PRIOR TO 0/10 POST FOR 3 DAYS AND THEN INCREASED TO 7-8/10. CONTINUES TO HAVE PAIN RAIATING INTO BOTH LEGSWITHTHIS BOTH LEGS BECAME VERY NUMB AND HAD SIG TINGLING. NOTED THAT THE LEFT WAS VERY WEAK. LEFT LEG IS STILL WEAK AND NUMB.. CURRENT MEDICATIONS TAKING DEPAKOTE SPRINKLES 125 MG CAPSULE SPRINKLE 4 CAPSULES P.O. IN THE A.M. 4 CAPS AT NOON, 4 CAPS AT DINNER, 4 CAPS AT BEDTIME (DR. WAGNER) TAKING GLUCOMETER 1 METER TEST WHEN DIZZINESS TOPICAL USE WITH STRIPS WITH DIZZINESS TAKING LANCET DEVICE 1 LANCET LANCET 1 LANCET WITH BLOOD SUGAR TESTING INTRADERMALLY WITH EPISODES TAKING BLOOD GLUCOSE TEST STRIP 1 STRIP WITH METER WITH METER WHEN FEELING POORLY DX 780.4 TAKING OMEPRAZOLE 40MG 40 MG TABLET 1 TAB ORAL ONCE A DAY TAKING BREO ELLIPTA 100-25 MCG/INH AEROSOL POWDER BREATH ACTIVATED 1 PUFF INHALATION ONCE A DAY TAKING NASACORT AQ 55 MCG/ACT AEROSOL SOLUTION 2 PUFFS IN EACH NOSTRIL NASALLY ONCE A DAY NEEDED TAKING ALBUTEROL SULFATE (2.5 MG/3ML) 0.083% NEBULIZATION SOLUTION 3 ML PULMONARY INHALATION THREE TIMES A DAY TAKING PROAIR HFA 108 (90 BASE) MCG/ACT AEROSOL SOLUTION 2 PUFFS NEEDED INHALATION QID PRN MEDICATION LIST REVIEWED AND RECONCILED WITH THE PATIENT PAST MEDICAL HISTORY ASTHMA EPILEPSY- F/W DR. WAGNER CELLULITIS OF LEFT PRE-AURICULAR REGION RESOLVED S/P SEBACEOUS CYST REMOVAL HEMMORRHOIDS HYPOTHYROIDISM HYPOGLYCEMIC EPISODES W/O HYPERGLYCEMIA MIGRAINE CERVICALGIA LOW BACK PAIN ALLERGIES DILANTIN: RASH: ALLERGY CODEINE PHOSPHATE (FOR ALLERGIES USE ONLY): RASH: ALLERGY VICODIN: NAUSEA/VOMITING: CONTRAINDICATION LIDOCAINE PATCH: ITCHING: ALLERGY SOCIAL HISTORY GENERAL: TOBACCO USE ARE YOU A:NONSMOKER ALCOHOL SCREENING DID YOU HAVE A DRINK CONTAINING ALCOHOL IN THE PAST YEAR?YES HOW OFTEN DID YOU HAVE SIX OR MORE DRINKS ON ONE OCCASION IN THE PAST YEAR?NEVER (0 POINTS) HOW MANY DRINKS DID YOU HAVE ON A TYPICAL DAY WHEN YOU WERE DRINKING IN THE PAST YEAR?1 OR 2 (0 POINTS) HOW OFTEN DID YOU HAVE A DRINK CONTAINING ALCOHOL IN THE PAST YEAR?MONTHLY OR LESS (1 POINT) POINTS1 INTERPRETATIONNEGATIVE RECREATIONAL DRUG USE DRUG USE?NO CAFFEINE CAFFEINE USE?YES HOW OFTEN AND HOW MUCH? COFFEE DAILY ANABAPTISM [id number] NONE LEARNING BARRIERS / SPECIAL NEEDS BARRIERS TO LEARNING?NO HEARING IMPAIRED?NO VISION IMPAIRED?YES : CORRECTIVE LENSES READINESS TO LEARN?YES LEARNING PREFERENCES?NO SPECIAL DEVICES?NO PAIN CLINIC PFS, CLERGY, PUBLIC HEALTH REFERRALS PFS REFERRAL NEEDED?NO CLERGY REFERRAL NEEDED?NO PUBLIC HEALTH REFERRAL NEEDED?NO WAS THE PROVIDER NOTIFIED OF ANY PERTINENT INFO?NO HAS THE PATIENT BEEN EDUCATED REGARDING HIS/HER PLAN OF CARE?YES HAS THE PATIENT BEEN EDUCATED REGARDING PAIN, THE RISK FOR PAIN, THE IMPORTANCE OF EFFECTIVE PAIN MANAGEMENT, AND THE PAIN ASSESSMENT PROCESS?YES PATIENT: ____. ADVANCE DIRECTIVES HEALTH CARE PROXY?NO WOULD YOU LIKE MORE INFORMATION?NO DOMESTIC VIOLENCE DO YOU FEEL SAFE IN YOUR ENVIRONMENT?NO REVIEW OF SYSTEMS REVIEWED BY: PROVIDER: JOSE MORA . CONSTITUTIONAL: ANY CHANGE IN YOUR MEDICAL CONDITION? NO . CHILLS NO . FEVER NO . INFECTION: DO YOU HAVE NEW INFECTIONS? NO . DO YOU HAVE HISTORY OF MRSA? NO . MUSCULOSKELETAL: ANY NEW PATTERNS OF PAIN OR NUMBNESS? NO . GASTROENTEROLOGY: ANY NEW CHANGE IN BOWEL CONTROL? NO . GENITOURINARY: ANY NEW CHANGE IN BLADDER CONTROL? NO . IS THERE A CHANCE YOU COULD BE ? NO . HEMATOLOGY/LYMPH: DO YOU TAKE ANY BLOOD THINNERS? (FOR EXAMPLE- COUMADIN, PLAVIX, AGGRENOX, PLATEL, PRADAXA, OR XARELTO) NO . WHEN WAS YOUR LAST DOSE? DATE: TIME: . NEUROLOGY: HAVE YOU FALLEN IN THE PAST 6 MONTHS? NO . ANY NEW EXTREMITY NUMBNESS OR WEAKNESS? NO . SEIZURES NO RECENT SEIZURES . CARDIOLOGY: DO YOU HAVE A PACEMAKER OR DEFIBRILLATOR? NO . RESPIRATORY: HAVE YOU BEEN SICK IN THE PAST WEEK? YES, STARTED WITH NPC YEST., DENIES FEVER . FEVER NO . FLU LIKE SYMPTOMS? NO . COUGH NO . INTEGUMENTARY: DO YOU HAVE ANY RASHES OR OPEN SORES? NO . ALLERGIC/IMMUNO: ARE YOU ALLERGIC TO SHELLFISH OR IV DYE? NO . ANY NEW ALLERGIES? NO . PSYCHIATRIC: DO YOU HAVE THOUGHTS OF HURTING YOURSELF OR SOMEONE ELSE? NO . ARE YOU ABUSED, NEGLECTED, OR IN AN UNSAFE ENVIRONMENT? NO . ENDOCRINOLOGY: ARE YOU DIABETIC? NO . OTHER: DO YOU NEED ANY PRESCRIPTIONS? NO . IF YES, PLEASE LIST: ____ . ANY NEW PROBLEMS WITH YOUR MEDICATIONS? NO . WHEN DID YOU LAST EAT? ____ . WHEN DID YOU LAST DRINK? ____ . WHAT DID YOU LAST DRINK? ____ . NAME OF PERSON DRIVING YOU HOME? ____ . DO YOU HAVE ANY OTHER QUESTIONS OR CONCERNS YES, WANTS TO KNOW WHAT NEXT STEP IS, PT IS NOT HELPING AND NEITHER HAS THE INJECTIONS . VITAL SIGNS WT 269.4 LBS, HT 66 IN, BMI 43.48 INDEX, BP 156/81 MM HG, HR 76 /MIN, RR 18 /MIN, TEMP 97.4 F, OXYGEN SAT % 98%, NA INITIALS SC 09:27, REVIEWED BY: AD. EXAMINATION GENERAL EXAMINATION: GENERAL APPEARANCE:COLOR PALE. PSYCHALERT , ORIENTED X 3 , SPEACH SLOW AND DELIBERATE, GOOD EYE CONTACT. HEENT:NORMOCEPHALIC, NO LYMPHADENOPATHY, NO THYROMEGLY. THICK NECK IS NOTED. LUNGS:CLEAR TO AUSCULTATION BILATERALLY, NO WHEEZES, RALES OR RHONCHI. HEART:HEART RATE REGULAR. MUSCULOSKELETAL:MUSCLE STRENGTH TESTING 5/5 BILATERAL UPPER AND LOWER EXTREMITES POINT TENDERNESS OVER LUMBAR SPINOUS PROCESSES AND ACROSS THE LUMBOSACRAL AXIS. SLOW TO RISE TO STANDING POSITION. POSTURE STOOPED. GAIT WIDE BASED, NON ANTALGIC. 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 HE COMPLETED 11 VISITS - THEY ARE NOTING LACK OF PROGRESS AT MEETING GOALS. PROCEDURE CODES FA211 ESTABILISHED PATIENT [facility] CHARGE DISPOSITION & COMMUNICATION FOLLOW UP [address] SCAN (REASON: CHECK AUTH FOR CT LS SPINE) ELECTRONICALLY SIGNED BY AMADOR MARINA ON 01/31/2017 AT 07:06 AM EDT DISCLAIMER : THIS IS A VISIT SUMMARY EXTRACTED FROM THE [employer] CHART. IT IS NOT A COPY OF THE [employer] PROGRESS NOTE. TEO
== END ==
LOC: M PAIN 08:45
PROVIDERS: ATTEND Nurse Practitioner Family
DX: G89.29 Other chronic pain (principal); M51.36 Other intervertebral disc degeneration, lumbar region; M51.26 Other intervertebral disc displacement, lumbar region; M54.16 Radiculopathy, lumbar region; J45.909 Unspecified asthma, uncomplicated; G40.909 Epilepsy, unspecified, not intractable, without status epilepticus; E03.9 Hypothyroidism, unspecified; G43.909 Migraine, unspecified, not intractable, without status migrainosus; Z88.5 Allergy status to narcotic agent; Z88.8 Allergy status to other drugs, medicaments and biological substances; Z79.51 Long term (current) use of inhaled steroids; Z79.899 Other long term (current) drug therapy

== ENCOUNTER → 2017-01-10 | Outpatient (CLI) | payer MEDICARE, MEDICAID ==
--- NOTE | 2017-01-10 10:51 | REP ---
CT LUMBAR SPINE WITHOUT CONTRAST: HISTORY: Back pain. COMPARISON: MR 10/17/2016. There is no disc bulge or herniation at the L1-2 through L3-4 levels. The nerves exit the neural foramina without compression. A diffuse disc bulge is present at the L4-5 level. There is minimal compression of the thecal sac. There is hypertrophy of the posterior articulating facets. The L4 nerves exit the neural foramina without compression. A disc bulge with associate osteophyte formation is present at the L5-S1 level. This abuts the thecal sac. There is hypertrophy of the posterior articulating facets. The L5 nerves exit the neural foramina without compression. The L2-3, L3-4, and L5-S1 intervertebral discs are decreased in height consistent with disc degeneration. There is no subluxation. IMPRESSION: 1. Diffuse disc bulge at the L4-5 level with minimal thecal sac compression. 2. Diffuse disc bulge with associate osteophyte formation at the L5-S1 level. This abuts the thecal sac. There is no significant change compared to the previous study. Signed by Mekhi Branham MD 01/10/2017 10:52 A
== END ==
LOC: M RAD 10:02
PROVIDERS: ATTEND Nurse Practitioner Family
DX: M54.5 Low back pain (principal)

== ENCOUNTER → 2017-02-05 | Outpatient (CLI) | payer MEDICARE, MEDICAID ==
--- NOTE | 2017-02-05 23:55 | ECWPNPC ---
PATIENT NAME: ANISH MOTA : 1975 GENDER: MALE VISIT DATE: 02/05/2017 DISCHARGE DATE: 02/05/17 1558 VISIT LOCKED DATE TIME: PHYSICIAN: JOSE MCDONOUGH RESOURCE: JOSE MCDONOUGH REASON FOR APPOINTMENT 1. REVIEW CT LS SPINE HISTORY OF PRESENT ILLNESS HISTORY OF PRESENT ILLNESS: PAIN THE PATIENT DESCRIBES THE PAIN... FALL RISK SCREENING: SCREENING :NO FALLS IN THE PAST YEAR TODAY'S VISIT: NOTES: REPORTS IS HAVING NAUSEA AND VOMITING FROM PAIN. RATES PAIN 10/10. DESCRIBES PAIN CONSTANT, SHARP AND STABBING, SHOOTING AND IS HAVING CHARLEY HORSES FROM BACK TO THE LEGS. IS HAVING N/T INTO LEGS. . CURRENT MEDICATIONS TAKING DEPAKOTE SPRINKLES 125 MG CAPSULE SPRINKLE 4 CAPSULES P.O. IN THE A.M. 4 CAPS AT NOON, 4 CAPS AT DINNER, 4 CAPS AT BEDTIME (DR. WAGNER) TAKING GLUCOMETER 1 METER TEST WHEN DIZZINESS TOPICAL USE WITH STRIPS WITH DIZZINESS TAKING LANCET DEVICE 1 LANCET LANCET 1 LANCET WITH BLOOD SUGAR TESTING INTRADERMALLY WITH EPISODES TAKING BLOOD GLUCOSE TEST STRIP 1 STRIP WITH METER WITH METER WHEN FEELING POORLY DX 780.4 TAKING OMEPRAZOLE 40MG 40 MG TABLET 1 TAB ORAL ONCE A DAY TAKING BREO ELLIPTA 100-25 MCG/INH AEROSOL POWDER BREATH ACTIVATED 1 PUFF INHALATION ONCE A DAY TAKING NASACORT AQ 55 MCG/ACT AEROSOL SOLUTION 2 PUFFS IN EACH NOSTRIL NASALLY ONCE A DAY NEEDED TAKING ALBUTEROL SULFATE (2.5 MG/3ML) 0.083% NEBULIZATION SOLUTION 3 ML PULMONARY INHALATION THREE TIMES A DAY TAKING PROAIR HFA 108 (90 BASE) MCG/ACT AEROSOL SOLUTION 2 PUFFS NEEDED INHALATION QID PRN MEDICATION LIST REVIEWED AND RECONCILED WITH THE PATIENT PAST MEDICAL HISTORY ASTHMA EPILEPSY- F/W DR. WANGER CELLULITIS OF LEFT PRE-AURICULAR REGION RESOLVED S/P SEBACEOUS CYST REMOVAL HEMMORRHOIDS HYPOTHYROIDISM HYPOGLYCEMIC EPISODES W/O HYPERGLYCEMIA MIGRAINE CERVICALGIA LOW BACK PAIN ALLERGIES DILANTIN: RASH: ALLERGY CODEINE PHOSPHATE (FOR ALLERGIES USE ONLY): RASH: ALLERGY VICODIN: NAUSEA/VOMITING: CONTRAINDICATION LIDOCAINE PATCH: ITCHING: ALLERGY SURGICAL HISTORY DOUBLE HERNIA REPAIR 2013 LEFT KNEE [employer] REPAIR 2014 SOCIAL HISTORY GENERAL: TOBACCO USE ARE YOU A:NONSMOKER ALCOHOL SCREENING DID YOU HAVE A DRINK CONTAINING ALCOHOL IN THE PAST YEAR?YES HOW OFTEN DID YOU HAVE SIX OR MORE DRINKS ON ONE OCCASION IN THE PAST YEAR?NEVER (0 POINTS) HOW MANY DRINKS DID YOU HAVE ON A TYPICAL DAY WHEN YOU WERE DRINKING IN THE PAST YEAR?1 OR 2 (0 POINTS) HOW OFTEN DID YOU HAVE A DRINK CONTAINING ALCOHOL IN THE PAST YEAR?MONTHLY OR LESS (1 POINT) POINTS1 INTERPRETATIONNEGATIVE RECREATIONAL DRUG USE DRUG USE?NO CAFFEINE CAFFEINE USE?YES HOW OFTEN AND HOW MUCH? COFFEE DAILY CHURCH [id number] NONE LEARNING BARRIERS / SPECIAL NEEDS BARRIERS TO LEARNING?NO HEARING IMPAIRED?NO VISION IMPAIRED?YES : CORRECTIVE LENSES READINESS TO LEARN?YES LEARNING PREFERENCES?NO SPECIAL DEVICES?NO PAIN CLINIC PFS, CLERGY, PUBLIC HEALTH REFERRALS PFS REFERRAL NEEDED?NO CLERGY REFERRAL NEEDED?NO PUBLIC HEALTH REFERRAL NEEDED?NO WAS THE PROVIDER NOTIFIED OF ANY PERTINENT INFO?NO HAS THE PATIENT BEEN EDUCATED REGARDING HIS/HER PLAN OF CARE?YES HAS THE PATIENT BEEN EDUCATED REGARDING PAIN, THE RISK FOR PAIN, THE IMPORTANCE OF EFFECTIVE PAIN MANAGEMENT, AND THE PAIN ASSESSMENT PROCESS?YES PATIENT: ____. ADVANCE DIRECTIVES HEALTH CARE PROXY?NO WOULD YOU LIKE MORE INFORMATION?NO DOMESTIC VIOLENCE DO YOU FEEL SAFE IN YOUR ENVIRONMENT?NO REVIEW OF SYSTEMS REVIEWED BY: PROVIDER: JOSE MORA . CONSTITUTIONAL: ANY CHANGE IN YOUR MEDICAL CONDITION? YES, NEW CHANGE IN PAIN PATTERN AND INTENSITY ALONG WITH URGENCY TO URINATE WITH PAIN WHEN LYING DOWN . CHILLS NO . FEVER NO . INFECTION: DO YOU HAVE NEW INFECTIONS? NO . DO YOU HAVE HISTORY OF MRSA? NO . MUSCULOSKELETAL: ANY NEW PATTERNS OF PAIN OR NUMBNESS? YES, RIGHT SHOULDER PAIN RADIATING DOWN ARM, BILAT LOW BACK AND BILAT LEG PAIN RADIATING DOWN LEGS WITH CRAMPS . GASTROENTEROLOGY: ANY NEW CHANGE IN BOWEL CONTROL? NO . GENITOURINARY: ANY NEW CHANGE IN BLADDER CONTROL? YES, PT REPORTS WHEN HE RESTS AT NIGHT AND PAIN SETS IN, SENSATION TO URINATE IS EXTREMELY URGENT . IS THERE A CHANCE YOU COULD BE ? NO . HEMATOLOGY/LYMPH: DO YOU TAKE ANY BLOOD THINNERS? (FOR EXAMPLE- COUMADIN, PLAVIX, AGGRENOX, PLATEL, PRADAXA, OR XARELTO) NO . WHEN WAS YOUR LAST DOSE? DATE: TIME: . NEUROLOGY: HAVE YOU FALLEN IN THE PAST 6 MONTHS? NO . ANY NEW EXTREMITY NUMBNESS OR WEAKNESS? NO . CARDIOLOGY: DO YOU HAVE A PACEMAKER OR DEFIBRILLATOR? NO . RESPIRATORY: HAVE YOU BEEN SICK IN THE PAST WEEK? NO . FEVER NO . FLU LIKE SYMPTOMS? NO . COUGH NO . INTEGUMENTARY: DO YOU HAVE ANY RASHES OR OPEN SORES? NO . ALLERGIC/IMMUNO: ARE YOU ALLERGIC TO SHELLFISH OR IV DYE? NO . ANY NEW ALLERGIES? NO . PSYCHIATRIC: DO YOU HAVE THOUGHTS OF HURTING YOURSELF OR SOMEONE ELSE? NO . ARE YOU ABUSED, NEGLECTED, OR IN AN UNSAFE ENVIRONMENT? NO . ENDOCRINOLOGY: ARE YOU DIABETIC? NO . OTHER: DO YOU NEED ANY PRESCRIPTIONS? NO . IF YES, PLEASE LIST: ____ . ANY NEW PROBLEMS WITH YOUR MEDICATIONS? YES, PT C/O N/V FROM PAIN . WHEN DID YOU LAST EAT? ____ . WHEN DID YOU LAST DRINK? ____ . WHAT DID YOU LAST DRINK? ____ . NAME OF PERSON DRIVING YOU HOME? ____ . DO YOU HAVE ANY OTHER QUESTIONS OR CONCERNS NO, PT DENIES GETTING FLU SHOT AND DOES NOT PLAN TO GET . VITAL SIGNS WT 264 LBS, HT 66 IN, BMI 42.61 INDEX, BP 154/85 MM HG, HR 57 /MIN, RR 18 /MIN, TEMP 97.4 F, OXYGEN SAT % 97%, NA INITIALS AW 1435, REVIEWED BY: EM. EXAMINATION GENERAL EXAMINATION: GENERAL APPEARANCE:COLOR PALE. PSYCHALERT , ORIENTED X 3 , SPEACH SLOW AND DELIBERATE, GOOD EYE CONTACT. HEENT:NORMOCEPHALIC, NO LYMPHADENOPATHY, NO THYROMEGLY. THICK NECK IS NOTED. LUNGS:CLEAR TO AUSCULTATION BILATERALLY, NO WHEEZES, RALES OR RHONCHI. HEART:HEART RATE REGULAR. MUSCULOSKELETAL:MUSCLE STRENGTH TESTING 5/5 BILATERAL UPPER AND LOWER EXTREMITES POINT TENDERNESS OVER LUMBAR SPINOUS PROCESSES AND ACROSS THE LUMBOSACRAL AXIS. SLOW TO RISE TO STANDING POSITION. POSTURE STOOPED. GAIT WIDE BASED, NON ANTALGIC. 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 NEEDS SEDATION FOR PROCEDURE,LUMBAR EPIDURAL INJECTION: RECOVERY AT HOME MATERIAL WAS PRINTED,LUMBAR EPIDURAL INJECTION: YOUR PROCEDURE MATERIAL WAS PRINTED,PROCEDURAL SEDATION MATERIAL WAS PRINTED. CLINICAL NOTES: MEDICATION OPTION REVIEWED - STATES HAS DIFFICULTY SWALLOWING MEDS AND DOES NOT WANT TO ADD ANY NEW MEDS TO HIS LIST. DOES NOT TOLERATE NSAIDS DUE TO GI ISSUES. PROCEDURE CODES FA211 ESTABILISHED PATIENT [facility] FACILITY CHARGE G8730 PAIN ASSESS POS TOOL F/U PLAN DOC [id number] DOC MEDS VERIFIED W/PT OR RE DISPOSITION & COMMUNICATION FOLLOW UP AFTER PROCEDURE (REASON: L4-5 AND L5-S1 TRANSFORAMINAL LEFT) ELECTRONICALLY SIGNED BY AMADOR MARINA ON 02/05/2017 AT 06:03 PM EDT DISCLAIMER : THIS IS A VISIT SUMMARY EXTRACTED FROM THE [employer] CHART. IT IS NOT A COPY OF THE [employer] PROGRESS NOTE. TEO
== END ==
LOC: M PAIN 14:45
PROVIDERS: ATTEND Nurse Practitioner Family
DX: G89.29 Other chronic pain (principal); M51.36 Other intervertebral disc degeneration, lumbar region; M51.26 Other intervertebral disc displacement, lumbar region; M54.16 Radiculopathy, lumbar region; J45.909 Unspecified asthma, uncomplicated; G40.909 Epilepsy, unspecified, not intractable, without status epilepticus; E03.9 Hypothyroidism, unspecified; G43.909 Migraine, unspecified, not intractable, without status migrainosus; Z88.5 Allergy status to narcotic agent; Z88.8 Allergy status to other drugs, medicaments and biological substances; Z79.51 Long term (current) use of inhaled steroids; Z79.899 Other long term (current) drug therapy

== ENCOUNTER → 2017-02-24 | Outpatient (CLI) | payer MEDICARE, MEDICAID ==
[2017-02-24 15:05] LABS: BASO % 0.3 % (0.0-1.0); EOS % 0.1 % (0.0-3.0); IMMATURE GRANULOCYTE % 0.8 % (0-0); LYMPH # 2.2 10^3/uL (1.5-4.5); LYMPH % 22.6 % (24.0-44.0); MEAN CORPUSCULAR HGB CONC 30.9 g/dl (32.0-36.5); MEAN CORPUSCULAR VOLUME 93.9 fl (80.0-96.0); MONO % 10.2 % (0.0-5.0); NEUTROPHILS # 6.4 10^3/uL (1.8-7.7); PLATELET COUNT, AUTOMATED 159 10^3/uL (150-450); RED CELL DISTRIBUTION WIDTH 14.7 % (11.5-14.5); WHITE BLOOD COUNT 9.8 10^3/uL (4.0-10.0)
== END ==
LOC: M LAB 14:00
PROVIDERS: ATTEND Physician Assistant Medical
DX: Z51.81 Encounter for therapeutic drug level monitoring (principal); Z79.899 Other long term (current) drug therapy; R56.9 Unspecified convulsions

== ENCOUNTER → 2017-02-26 | Outpatient (CLI) | payer MEDICARE, MEDICAID ==
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
== END ==
LOC: M PAIN 11:30
PROVIDERS: ATTEND Nurse Practitioner Family
DX: G89.29 Other chronic pain (principal); M46.1 Sacroiliitis, not elsewhere classified; M51.36 Other intervertebral disc degeneration, lumbar region; M51.26 Other intervertebral disc displacement, lumbar region; M54.16 Radiculopathy, lumbar region; G40.919 Epilepsy, unspecified, intractable, without status epilepticus; E03.9 Hypothyroidism, unspecified; Z88.8 Allergy status to other drugs, medicaments and biological substances; Z88.5 Allergy status to narcotic agent; Z79.899 Other long term (current) drug therapy

== ENCOUNTER → 2017-03-10 | Outpatient (CLI) | payer MEDICARE, MEDICAID ==
[2017-03-10 10:34] LABS: BASO % 0.6 % (0.0-1.0); EOS % 0.4 % (0.0-3.0); IMMATURE GRANULOCYTE % 0.6 % (0-0); LYMPH # 1.8 10^3/uL (1.5-4.5); MEAN CORPUSCULAR HEMOGLOBIN 29.6 pg (27.0-33.0); MEAN CORPUSCULAR HGB CONC 31.2 g/dl (32.0-36.5); MEAN CORPUSCULAR VOLUME 94.8 fl (80.0-96.0); MONO # 0.7 10^3/uL (0.0-0.8); MONO % 13.4 % (0.0-5.0); NEUTROPHILS # 2.6 10^3/uL (1.8-7.7); PLATELET COUNT, AUTOMATED 104 10^3/uL (150-450); RED CELL DISTRIBUTION WIDTH 14.4 % (11.5-14.5); WHITE BLOOD COUNT 5.2 10^3/uL (4.0-10.0)
== END ==
LOC: M LAB 09:51
PROVIDERS: ATTEND Physician Assistant Medical
DX: R56.9 Unspecified convulsions (principal)

== ENCOUNTER → 2017-03-24 | Outpatient (CLI) | payer MEDICARE, MEDICAID ==
[2017-03-24 10:57] LABS: BASO % 0.7 % (0.0-1.0); EOS % 0.5 % (0.0-3.0); IMMATURE GRANULOCYTE % 1.4 % (0-0); LYMPH # 1.1 10^3/uL (1.5-4.5); LYMPH % 26.7 % (24.0-44.0); MEAN CORPUSCULAR HEMOGLOBIN 29.3 pg (27.0-33.0); MEAN CORPUSCULAR HGB CONC 31.9 g/dl (32.0-36.5); MEAN CORPUSCULAR VOLUME 91.8 fl (80.0-96.0); MONO # 0.8 10^3/uL (0.0-0.8); MONO % 19.8 % (0.0-5.0); NEUTROPHILS # 2.1 10^3/uL (1.8-7.7); NEUTROPHILS % 50.9 % (36.0-66.0); PLATELET COUNT, AUTOMATED 121 10^3/uL (150-450); RED CELL DISTRIBUTION WIDTH 13.8 % (11.5-14.5); WHITE BLOOD COUNT 4.2 10^3/uL (4.0-10.0)
== END ==
LOC: M LAB 10:37
PROVIDERS: ATTEND Physician Assistant Medical
DX: R56.9 Unspecified convulsions (principal); D69.6 Thrombocytopenia, unspecified

== ENCOUNTER → 2017-03-31 | Outpatient (CLI) | payer MEDICARE, MEDICAID ==
[~2017-03-31] MED LIST changes: +GASTROGRAFIN SOLUTION 30ML (Q9963) As Ordered ONE; +ISOVUE-370 76% 100ML VIAL (Q9967) As Ordered ONE
--- NOTE | 2017-03-31 20:20 | REP ---
CT abdomen pelvis with IV and oral contrast: History: Abdomen pain. Comparison CT study june [address] contrast dose: 100 ml of Isovue 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 The lung bases are clear. The liver and the spleen are normal in size and homogeneous in texture. No adrenal lesion is seen on either side. The kidneys enhance symmetrically. No pancreatic abnormality is observed. Gallbladder is unremarkable. No retroperitoneal mass or adenopathy is seen. A normal appendix is seen posterior to the cecum. Small and large intestinal bowel loops are unremarkable. No obstructive lesion is seen. A surgical clip is seen status post right inguinal herniorrhaphy. There is no evidence of recurrent hernia or other abdominal wall defect. No evidence of hematoma, seroma or other abnormal fluid collection. Bone window settings show no bony destructive lesion. Impression: Status post right inguinal hernia repair. Otherwise negative CT study of the abdomen and pelvis with IV and oral contrast. Signed by Jossue Pelaez MD 03/31/2017 09:45 P
== END ==
LOC: M RAD 15:20
PROVIDERS: ATTEND Surgery
DX: R10.84 Generalized abdominal pain (principal); Z98.890 Other specified postprocedural states
CPT/HCPCS: 74177; Q9963; Q9967

== ENCOUNTER → 2017-05-16 | Outpatient (CLI) | payer MEDICARE, MEDICAID | LOC: M PAIN 09:00 | DX: M46.1 Sacroiliitis, not elsewhere classified (principal); M51.26 Other intervertebral disc displacement, lumbar region; M79.1 Myalgia; J45.909 Unspecified asthma, uncomplicated; G40.909 Epilepsy, unspecified, not intractable, without status epilepticus; E03.9 Hypothyroidism, unspecified; G43.909 Migraine, unspecified, not intractable, without status migrainosus; E16.2 Hypoglycemia, unspecified; Z79.51 Long term (current) use of inhaled steroids; Z79.899 Other long term (current) drug therapy; Z88.5 Allergy status to narcotic agent; Z88.8 Allergy status to other drugs, medicaments and biological substances | CPT/HCPCS: G0463 ==

== ENCOUNTER → 2017-05-29 | Outpatient (CLI) | payer MEDICARE, MEDICAID ==
[2017-05-29 09:28] LABS: BASO % 0.5 % (0.0-1.0); EOS % 0.9 % (0.0-3.0); HEMATOCRIT 44.8 % (42.0-52.0); HEMOGLOBIN 14.5 g/dl (14.0-18.0); IMMATURE GRANULOCYTE % 0.2 % (0-3.0); LYMPH # 1.9 10^3/uL (1.5-4.5); LYMPH % 43.7 % (24.0-44.0); MEAN CORPUSCULAR HEMOGLOBIN 29.5 pg (27.0-33.0); MEAN CORPUSCULAR HGB CONC 32.4 g/dl (32.0-36.5); MEAN CORPUSCULAR VOLUME 91.2 fl (80.0-96.0); MONO # 0.5 10^3/uL (0.0-0.8); MONO % 10.4 % (0.0-5.0); NEUTROPHILS % 44.3 % (36.0-66.0); PLATELET COUNT, AUTOMATED 127 10^3/uL (150-450); RED BLOOD COUNT 4.91 10^6/uL (4.30-6.10); RED CELL DISTRIBUTION WIDTH 13.2 % (11.5-14.5); WHITE BLOOD COUNT 4.4 10^3/uL (4.0-10.0)
[2017-05-29 09:51] LABS: ALBUMIN 3.6 GM/DL (3.2-5.2); ALBUMIN/GLOBULIN RATIO 1.16 (1.00-1.93); ALKALINE PHOSPHATASE 66 U/L (45-117); ALT/SGPT 22 U/L (12-78); AMYLASE 88 U/L (25-115); ANION GAP 6 MEQ/L (8-16); AST/SGOT 17 U/L (7-37); BILIRUBIN,TOTAL 0.7 MG/DL (0.2-1.0); BLOOD UREA NITROGEN 9 MG/DL (7-18); CARBON DIOXIDE LEVEL 31 MEQ/L (21-32); CHLORIDE LEVEL 108 MEQ/L (98-107); GLOMERULAR FILTRATION RATE > 60.0 (>60); GLUCOSE, FASTING 85 MG/DL (70-100); LIPASE 114 U/L (73-393); POTASSIUM SERUM 4.2 MEQ/L (3.5-5.1); SODIUM LEVEL 145 MEQ/L (136-145); TOTAL PROTEIN 6.7 GM/DL (6.4-8.2)
== END ==
LOC: M RAD 07:08
DX: R10.11 Right upper quadrant pain (principal)
CPT/HCPCS: 76705

== ENCOUNTER → 2017-05-30 | Outpatient (CLI) | payer MEDICARE, MEDICAID | LOC: M RAD 07:18 | DX: K31.84 Gastroparesis (principal); K30 Functional dyspepsia | CPT/HCPCS: 78264 ==

== ENCOUNTER → 2017-06-03 | Outpatient (CLI) | payer MEDICARE, MEDICAID | LOC: M RAD 07:19 | DX: K52.9 Noninfective gastroenteritis and colitis, unspecified (principal) | CPT/HCPCS: J2805 ==

== ENCOUNTER 2017-06-09 09:17 | Day surgery (SDC) | payer MEDICARE, MEDICAID ==
[~2017-06-09 09:17] MED LIST changes: -ACET50TA PO; -ADVA115INH INH; -ALBU0.084 INH; -DEPA125C PO; -GASTROGRAFIN SOLUTION 30ML (Q9963) As Ordered ONE; -ISOVUE-370 76% 100ML VIAL (Q9967) As Ordered ONE; -KEPP500T5 PO; +LIDOCAINE 1% MDV 20ML VIAL As Ordered; +LIDOCAINE 2% INJ 100 MG/5 ML SDV (FOR ANES.) As Ordered; -MIRA33504 PO; -NASOCORT AQ; -OMEP40CA2 PO; -PROAAER INH; +PROPOFOL 200 MG/20 ML VIAL As Ordered; -SYNT88TA2 PO
[2017-06-09] MEDS ORDERED: NS 1,000 ML IV (09:45)
[2017-06-09] MEDS ORDERED: LIDOCAINE 1% MDV 20ML VIAL As Ordered (10:56)
[2017-06-09] MEDS ORDERED: PROPOFOL 200 MG/20 ML VIAL As Ordered (10:56)
== END 2017-06-09 11:38 | disposition home or self-care (01) ==
LOC: M SDC 09:17
DX: K20.9 Esophagitis, unspecified (principal); R10.13 Epigastric pain; R10.11 Right upper quadrant pain; K31.84 Gastroparesis; R11.0 Nausea; K21.9 Gastro-esophageal reflux disease without esophagitis; J45.909 Unspecified asthma, uncomplicated; E66.9 Obesity, unspecified; Z79.51 Long term (current) use of inhaled steroids; Z79.899 Other long term (current) drug therapy; Z88.8 Allergy status to other drugs, medicaments and biological substances
CPT/HCPCS: 43239

== ENCOUNTER → 2017-06-24 | Outpatient (CLI) | payer MEDICARE, MEDICAID ==
[2017-06-24 10:57] LABS: VALPROIC ACID (DEPAKOTE) 87.6 UG/ML (50.0-100.0)
== END ==
LOC: M LAB 10:04
DX: R56.9 Unspecified convulsions (principal)
CPT/HCPCS: 80164

== ENCOUNTER → 2017-07-11 | Outpatient (CLI) | payer MEDICARE, MEDICAID ==
[2017-07-11 13:53] LABS: VALPROIC ACID (DEPAKOTE) 77.6 UG/ML (50.0-100.0)
== END ==
LOC: M LAB 12:43
DX: R56.9 Unspecified convulsions (principal)
CPT/HCPCS: 80164

== ENCOUNTER → 2017-08-13 | Outpatient (CLI) | payer MEDICARE, MEDICAID | LOC: M PAIN 09:00 | DX: M46.1 Sacroiliitis, not elsewhere classified (principal); M51.26 Other intervertebral disc displacement, lumbar region; M79.1 Myalgia; J45.909 Unspecified asthma, uncomplicated; G40.909 Epilepsy, unspecified, not intractable, without status epilepticus; E03.9 Hypothyroidism, unspecified; E16.2 Hypoglycemia, unspecified; G43.909 Migraine, unspecified, not intractable, without status migrainosus; Z79.51 Long term (current) use of inhaled steroids; Z79.899 Other long term (current) drug therapy; Z88.5 Allergy status to narcotic agent; Z88.8 Allergy status to other drugs, medicaments and biological substances; Z86.39 Personal history of other endocrine, nutritional and metabolic disease | CPT/HCPCS: G0463 ==

== ENCOUNTER → 2017-08-21 | Outpatient (CLI) | payer MEDICARE, MEDICAID ==
[~2017-08-21] MED LIST changes: +BUPIVACAINE HCL 0.25% 30 ML VIAL As Ordered; +ISOVUE-M 300 61% 15ML VIAL (Q9967) As Ordered; -LIDOCAINE 1% MDV 20ML VIAL As Ordered; +LIDOCAINE 1% SDV INJ 30 ML VIAL As Ordered; -LIDOCAINE 2% INJ 100 MG/5 ML SDV (FOR ANES.) As Ordered; +MIDAZOLAM INJ 2 MG/2 ML VIAL (J2250) As Ordered; -PROPOFOL 200 MG/20 ML VIAL As Ordered; +TRIAMCINOLONE ACETONIDE SUSP 40 MG/ML VIAL (J3301) As Ordered; +fentaNYL 100 MCG/2 ML INJECTION (J3010) As Ordered
== END ==
LOC: M PAIN 08:30
DX: G89.29 Other chronic pain (principal); M46.1 Sacroiliitis, not elsewhere classified; M53.88 Other specified dorsopathies, sacral and sacrococcygeal region
CPT/HCPCS: J3301

== ENCOUNTER → 2017-09-11 | Outpatient (CLI) | payer MEDICARE, MEDICAID | LOC: M PAIN 08:45 | DX: M46.1 Sacroiliitis, not elsewhere classified (principal); M51.26 Other intervertebral disc displacement, lumbar region; M79.1 Myalgia; J45.909 Unspecified asthma, uncomplicated; G40.909 Epilepsy, unspecified, not intractable, without status epilepticus; E03.9 Hypothyroidism, unspecified; G43.909 Migraine, unspecified, not intractable, without status migrainosus; Z79.51 Long term (current) use of inhaled steroids; Z79.82 Long term (current) use of aspirin; Z79.899 Other long term (current) drug therapy; Z88.5 Allergy status to narcotic agent; Z88.8 Allergy status to other drugs, medicaments and biological substances | CPT/HCPCS: G0463 ==

== ENCOUNTER → 2017-11-12 | Outpatient (CLI) | payer MEDICARE, MEDICAID ==
[2017-11-12 13:40] LABS: VALPROIC ACID (DEPAKOTE) 101.5 UG/ML (50.0-100.0)
== END ==
LOC: M LAB 11:26
DX: R56.9 Unspecified convulsions (principal)
CPT/HCPCS: 80164

== ENCOUNTER → 2017-11-21 | Outpatient (CLI) | payer MEDICARE, MEDICAID ==
[2017-11-21 14:12] LABS: VALPROIC ACID (DEPAKOTE) 96.7 UG/ML (50.0-100.0)
== END ==
LOC: M LAB 13:14
DX: R56.9 Unspecified convulsions (principal)
CPT/HCPCS: 80164

== ENCOUNTER → 2018-02-10 | Outpatient (CLI) | payer MEDICARE, MEDICAID ==
[2018-02-10 11:12] LABS: VALPROIC ACID (DEPAKOTE) 72.1 UG/ML (50.0-100.0)
== END ==
LOC: M LAB 10:15
DX: R56.9 Unspecified convulsions (principal)
CPT/HCPCS: 80164

== ENCOUNTER → 2018-04-10 | Outpatient (CLI) | payer MEDICARE, MEDICAID ==
[~2018-04-10] MED LIST changes: +ACET50TA PO; +ADVA115INH INH; +ALBU0.084 INH; +ASPI1TAB15; +BREO1INH3 INH; -BUPIVACAINE HCL 0.25% 30 ML VIAL As Ordered; +DEPA125C PO; +DICY10CA13; +FLUTISP; -ISOVUE-M 300 61% 15ML VIAL (Q9967) As Ordered; +KEPP500T5 PO; -LIDOCAINE 1% SDV INJ 30 ML VIAL As Ordered; -MIDAZOLAM INJ 2 MG/2 ML VIAL (J2250) As Ordered; +MIRA33504 PO; +NASOCORT AQ; +OMEP40CA2 PO; +PROAAER INH; +SYNT88TA2 PO; -TRIAMCINOLONE ACETONIDE SUSP 40 MG/ML VIAL (J3301) As Ordered; +ZOFR4TAB16 PO; -fentaNYL 100 MCG/2 ML INJECTION (J3010) As Ordered
--- NOTE | 2018-04-10 18:09 | REP ---
MRI LEFT ANKLE: TECHNIQUE: Sagittal proton density, STIR, axial proton density fat sat, T1, coronal proton density, STIR. The Achilles, anterior tibial, posterior tibial, flexor halluces longus, flexor digitorum longus and peroneal tendons are all intact. Anterior and posterior talofibular, calcaneofibular and deltoid ligaments are intact. Plantar fascia demonstrates no abnormal signal. Plantar tendon is intact. There is mild diffuse soft tissue edema surrounding the ankle. A small amount of joint fluid is seen in the region of the tibiotalar joint. No osteochondral lesion is seen at the talar dome. However, there is marrow edema anteriorly in the talus. This may represent a bone bruise. There is a bone island in this region as well. IMPRESSION: No evidence of tendon or ligament tear. Marrow edema in the anterior talus may represent a bone bruise. There is mild joint fluid in the region of the tibiotalar joint and there is mild diffuse soft tissue edema. Electronically Signed by Kevin Gresham MD 04/16/2018 11:16 P
--- NOTE | 2018-04-10 18:14 | REP ---
MRI LEFT FOOT: TECHNIQUE: Multiple sequences obtained in the axial, coronal and sagittal planes. There is ill-defined high signal on T2-weighted images in the anterior talus consistent with marrow edema and possible bone bruise. There is mild adjacent joint fluid surrounding the talus extending into the tibiotalar joint. There is diffuse superficial soft tissue edema in the hindfoot. Flexor and extensor tendons of the foot appear intact without significant tenosynovitis. Remaining osseous structures demonstrate no abnormal marrow signal. Tarsal and metatarsal bones are well aligned as are the metatarsophalangeal joints with no subluxation or dislocation. Plantar fascia demonstrates no abnormal signal. IMPRESSION: Marrow edema in the anterior talus suggests a bone bruise. There is mild adjacent joint fluid extending into the tibiotalar joint. There is diffuse superficial soft tissue edema in the hindfoot. No other significant finding. Electronically Signed by Kevin Gresham MD 04/16/2018 11:17 P
== END ==
LOC: M RAD 13:59
PROVIDERS: ATTEND Orthopaedic Surgery Sports Medicine
DX: S93.402A Sprain of unspecified ligament of left ankle, initial encounter (principal); M25.472 Effusion, left ankle; X58.XXXA Exposure to other specified factors, initial encounter; Y92.9 Unspecified place or not applicable

== ENCOUNTER → 2018-05-19 | Outpatient (CLI) | payer MEDICARE, MEDICAID | LOC: M LAB 10:45 | PROVIDERS: ATTEND Physician Assistant Medical | DX: R56.9 Unspecified convulsions (principal) ==

== ENCOUNTER → 2018-11-24 | Outpatient (CLI) | payer MEDICARE, MEDICAID ==
[~2018-11-24] MED LIST changes: -ACET50TA PO; +MAPA500T17 PO
[2018-11-24 10:51] LABS: BASO % 0.6 % (0.0-1.0); EOS # 0.1 10^3/uL (0.0-0.50); EOS % 1.5 % (0.0-3.0); HEMATOCRIT 46.1 % (42.0-52.0); LYMPH # 1.9 10^3/uL (1.5-4.5); LYMPH % 35.1 % (24.0-44.0); MEAN CORPUSCULAR HEMOGLOBIN 28.8 pg (27.0-33.0); MEAN CORPUSCULAR HGB CONC 32.5 g/dl (32.0-36.5); MEAN CORPUSCULAR VOLUME 88.5 fl (80.0-96.0); MONO # 0.5 10^3/uL (0.0-0.8); MONO % 10.1 % (0.0-5.0); NEUTROPHILS # 2.8 10^3/uL (1.8-7.7); NEUTROPHILS % 52.3 % (36.0-66.0); PLATELET COUNT, AUTOMATED 159 10^3/uL (150-450); RED BLOOD COUNT 5.21 10^6/uL (4.30-6.10); WHITE BLOOD COUNT 5.4 10^3/uL (4.0-10.0)
[2018-11-24 11:18] LABS: VALPROIC ACID (DEPAKOTE) 54.6 UG/ML (50.0-100.0)
== END ==
LOC: M LAB 10:04
PROVIDERS: ATTEND Physician Assistant Medical
DX: G40.89 Other seizures (principal)

== ENCOUNTER 2019-01-19 09:31 | Emergency (ER) | payer OTHER, MEDICARE, MEDICAID ==
[~2019-01-19] VITALS: Ht 162.6 cm; Wt 104.5 kg
[2019-01-19 09:32] VITALS: BP 137/66
[2019-01-19] MEDS ORDERED: TIZA4TAB4 PO (09:39)
--- NOTE | 2019-01-19 10:06 | REP ---
Left foot four views: There is a nondisplaced fracture in the shaft of the fourth digit distal phalange. Mineralization and joint spaces otherwise are unremarkable. There are calcaneal Achilles and plantar spurs. Electronically Signed by Kevin Huang MD 01/19/2019 09:58 A
== END 2019-01-19 10:26 | disposition home or self-care (01) ==
LOC: M ED 09:31
DX: S92.535A Nondisplaced fracture of distal phalanx of left lesser toe(s), initial encounter for closed fracture (principal); S90.32XA Contusion of left foot, initial encounter; W22.8XXA Striking against or struck by other objects, initial encounter; Y92.89 Other specified places as the place of occurrence of the external cause; J45.909 Unspecified asthma, uncomplicated; K21.9 Gastro-esophageal reflux disease without esophagitis; Z79.899 Other long term (current) drug therapy; Z79.82 Long term (current) use of aspirin; Z88.5 Allergy status to narcotic agent; Z88.8 Allergy status to other drugs, medicaments and biological substances

== ENCOUNTER → 2019-06-07 | Outpatient (CLI) | payer MEDICARE, MEDICAID ==
[~2019-06-07] MED LIST changes: +TIZA4TAB4 PO
[2019-06-07 11:08] LABS: BASO % 0.9 % (0.0-1.0); EOS # 0.1 10^3/uL (0.0-0.5); EOS % 1.9 % (0.0-3.0); HEMATOCRIT 46.6 % (42.0-52.0); HEMOGLOBIN 14.8 g/dl (13.5-17.5); LYMPH # 1.6 10^3/uL (1.5-5.0); LYMPH % 34.9 % (24.0-44.0); MEAN CORPUSCULAR HEMOGLOBIN 28.8 pg (27.0-33.0); MEAN CORPUSCULAR HGB CONC 31.8 g/dl (32.0-36.5); MEAN CORPUSCULAR VOLUME 90.8 fl (80.0-96.0); MONO # 0.5 10^3/uL (0.0-0.8); MONO % 10.2 % (0.0-5.0); NEUTROPHILS # 2.4 10^3/uL (1.5-8.5); NEUTROPHILS % 51.7 % (36.0-66.0); PLATELET COUNT, AUTOMATED 141 10^3/uL (150-450); RED BLOOD COUNT 5.13 10^6/uL (4.30-6.10); WHITE BLOOD COUNT 4.7 10^3/uL (4.0-10.0)
[2019-06-07 11:38] LABS: VALPROIC ACID (DEPAKOTE) 33.9 UG/ML (50.0-100.0)
== END ==
LOC: M LAB 10:39
PROVIDERS: ATTEND Physician Assistant Medical
DX: Z51.81 Encounter for therapeutic drug level monitoring (principal); Z79.899 Other long term (current) drug therapy; R56.9 Unspecified convulsions

== ENCOUNTER → 2019-06-25 | Outpatient (CLI) | payer MEDICARE, MEDICAID ==
[2019-06-25 13:56] LABS: BASO # 0.1 10^3/uL (0.0-0.2); BASO % 0.9 % (0.0-1.0); EOS # 0.1 10^3/uL (0.0-0.5); EOS % 1.1 % (0.0-3.0); HEMATOCRIT 49.6 % (42.0-52.0); HEMOGLOBIN 15.9 g/dl (13.5-17.5); LYMPH % 37.1 % (24.0-44.0); MEAN CORPUSCULAR HEMOGLOBIN 29.4 pg (27.0-33.0); MEAN CORPUSCULAR HGB CONC 32.1 g/dl (32.0-36.5); MEAN CORPUSCULAR VOLUME 91.7 fl (80.0-96.0); MONO # 0.6 10^3/uL (0.0-0.8); MONO % 10.2 % (0.0-5.0); NEUTROPHILS # 2.7 10^3/uL (1.5-8.5); PLATELET COUNT, AUTOMATED 177 10^3/uL (150-450); RED BLOOD COUNT 5.41 10^6/uL (4.30-6.10); WHITE BLOOD COUNT 5.5 10^3/uL (4.0-10.0)
== END ==
LOC: M LAB 11:25
PROVIDERS: ATTEND Physician Assistant Medical
DX: R56.9 Unspecified convulsions (principal)

== ENCOUNTER 2019-09-14 21:27 | Emergency (ER) | payer MEDICARE, MEDICAID ==
[~2019-09-14] VITALS: Ht 165.1 cm; Wt 96.4 kg
[~2019-09-14 21:27] MED LIST changes: +ASPI-546; -ASPI1TAB15
--- NOTE | 2019-09-14 22:50 | REPVR ---
PROCEDURE INFORMATION: Exam: CT Head Without Contrast Exam date and time: 09/14/2019 10:30 PM Age: 44 years old Clinical indication: Pain; Headache; Additional info: Seizure; Head/neck pain TECHNIQUE: Imaging protocol: Computed tomography of the head without contrast. Radiation optimization: All CT scans at this facility use at least one of these dose optimization techniques: automated exposure control; mA and/or kV adjustment per patient size (includes targeted exams where dose is matched to clinical indication); or iterative reconstruction. COMPARISON: No relevant prior studies available. FINDINGS: Brain: Diffuse mild cerebral age related volume loss. Mild patchy low attenuation in the white matter compatible with mild chronic small vessel ischemic disease. No midline shift, mass, fluid collection, or evidence of hemorrhage. Ventricles: Ventricular enlargement proportional to volume loss. Bones/joints: Unremarkable. No acute fracture. Sinuses: Left frontal sinus and frontal ethmoidal recess disease. Mastoid air cells: Visualized mastoid air cells are well aerated. Soft tissues: Unremarkable. IMPRESSION: Mild involutional changes, no acute intracranial abnormality. Electronically signed by: Terrell Spivey On 09/14/2019 22:49:40 PM
[2019-09-14 22:58] LABS: BASO % 0.6 % (0.0-1.0); EOS # 0.1 10^3/uL (0.0-0.5); EOS % 1.1 % (0.0-3.0); HEMATOCRIT 46.8 % (42.0-52.0); HEMOGLOBIN 15.1 g/dl (13.5-17.5); LYMPH # 1.2 10^3/uL (1.5-5.0); LYMPH % 22.5 % (24.0-44.0); MEAN CORPUSCULAR HEMOGLOBIN 28.5 pg (27.0-33.0); MEAN CORPUSCULAR HGB CONC 32.3 g/dl (32.0-36.5); MEAN CORPUSCULAR VOLUME 88.3 fl (80.0-96.0); MONO # 0.6 10^3/uL (0.0-0.8); MONO % 11.8 % (0.0-5.0); NEUTROPHILS # 3.5 10^3/uL (1.5-8.5); NEUTROPHILS % 63.4 % (36.0-66.0); PLATELET COUNT, AUTOMATED 185 10^3/uL (150-450); WHITE BLOOD COUNT 5.4 10^3/uL (4.0-10.0)
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
[2019-09-14 23:22] LABS: ALBUMIN 3.6 GM/DL (3.2-5.2); ALT/SGPT 29 U/L (12-78); BILIRUBIN,TOTAL 0.5 MG/DL (0.2-1.0); BLOOD UREA NITROGEN 13 MG/DL (7-18); CALCIUM LEVEL 9.1 MG/DL (8.5-10.1); CARBON DIOXIDE LEVEL 27 MEQ/L (21-32); CHLORIDE LEVEL 105 MEQ/L (98-107); GLOMERULAR FILTRATION RATE > 60.0 (>60); GLUCOSE, FASTING 76 MG/DL (70-100); POTASSIUM SERUM 4.1 MEQ/L (3.5-5.1); SODIUM LEVEL 141 MEQ/L (136-145); TOTAL PROTEIN 6.4 GM/DL (6.4-8.2); VALPROIC ACID (DEPAKOTE) 52.6 UG/ML (50.0-100.0)
[2019-09-14] MEDS ORDERED: ACETAMINOPHEN TAB 650MG DOSE (2X325MG) PO ONE (23:30)
[2019-09-14] MEDS ORDERED: DIVALPROEX SPRINKLE 125 MG CAP PO ONE (23:45)
[2019-09-15 00:15] VITALS: BP 129/86
== END 2019-09-15 01:16 | disposition home or self-care (01) ==
LOC: M ED 21:27
DX: G40.909 Epilepsy, unspecified, not intractable, without status epilepticus (principal); K21.9 Gastro-esophageal reflux disease without esophagitis; Z79.899 Other long term (current) drug therapy; Z79.82 Long term (current) use of aspirin; Z88.5 Allergy status to narcotic agent; Z88.8 Allergy status to other drugs, medicaments and biological substances

== ENCOUNTER → 2019-10-08 | Outpatient (CLI) | payer MEDICARE, MEDICAID ==
[~2019-10-08] MED LIST changes: -ASPI-546; +ASPI1TAB15
== END ==
LOC: M LAB 12:47
PROVIDERS: ATTEND Physician Assistant Medical
DX: R56.9 Unspecified convulsions (principal)

== ENCOUNTER 2019-11-16 14:25 | Emergency (ER) | payer MEDICARE, MEDICAID ==
[~2019-11-16 14:25] MED LIST changes: +ASPI-546; -ASPI1TAB15
[2019-11-16] MEDS ORDERED: DIVALPROEX 250 MG TAB ONE (18:57)
--- NOTE | 2019-12-30 17:23 | ECGEPIP ---
SINUS RHYTHM MOD. IVCD PRWP NONSPECIFIC T WAVE CHANGES SEE SCANNED DOWNTIME REPORT MTDD
[2020-01-02 08:49] LABS: APPEARANCE, URINE HAZY (CLEAR); BACTERIA, URINE AUTO NEGATIVE (NEGATIVE); BILIRUBIN, URINE AUTO NEGATIVE (NEGATIVE); BLOOD, URINE BLOOD NEGATIVE (NEGATIVE); CALCIUM OXALATE CRYSTALS SMALL; COLOR, URINE YELLOW (YELLOW); GLUCOSE, URINE (UA) AUTO NEGATIVE (NEGATIVE); KETONE, URINE AUTO 2+ mg/dL (NEGATIVE); LEUKOCYTE ESTERASE, URINE AUTO NEGATIVE (NEGATIVE); MUCUS, URINE LARGE (NEGATIVE); NITRITE, URINE AUTO NEGATIVE (NEGATIVE); PROTEIN, URINE AUTO 2+ mg/dL (NEGATIVE); RBC, URINE AUTO 3 /HPF (0-3); SPECIFIC GRAVITY URINE AUTO 1.028 (1.002-1.035); SQUAMOUS EPITHELIAL CELL UR AU 0 /HPF (0-6); WBC, URINE AUTO 3 /HPF (0-3)
[2020-01-02 09:33] LABS: BASO % 0.6 % (0.0-1.0); EOS # 0.1 10^3/uL (0.0-0.5); HEMATOCRIT 48.1 % (42.0-52.0); HEMOGLOBIN 15.3 g/dl (13.5-17.5); LYMPH # 1.3 10^3/uL (1.5-5.0); LYMPH % 24.9 % (24.0-44.0); MEAN CORPUSCULAR HEMOGLOBIN 28.7 pg (27.0-33.0); MEAN CORPUSCULAR HGB CONC 31.8 g/dl (32.0-36.5); MEAN CORPUSCULAR VOLUME 90.1 fl (80.0-96.0); MONO # 0.4 10^3/uL (0.0-0.8); MONO % 7.4 % (0.0-5.0); NEUTROPHILS # 3.3 10^3/uL (1.5-8.5); NEUTROPHILS % 65.9 % (36.0-66.0); PLATELET COUNT, AUTOMATED 171 10^3/uL (150-450); RED BLOOD COUNT 5.34 10^6/uL (4.30-6.10)
[2020-01-30 11:29] LABS: AMPHETAMINES LEVEL URINE NEGATIVE (NEGATIVE); BARBITURATES URINE NEGATIVE (NEGATIVE); BENZODIAZEPINES URINE NEGATIVE (NEGATIVE); CANNABINOIDS URINE NEGATIVE (NEGATIVE); COCAINE METABOLITE URINE NEGATIVE (NEGATIVE); METHADONE URINE NEGATIVE (NEGATIVE); OPIATES URINE NEGATIVE (NEGATIVE); PHENCYCLIDINE URINE NEGATIVE (NEGATIVE)
[2020-01-30 11:29] LABS: ALBUMIN 4.1 GM/DL (3.2-5.2); ALT/SGPT 22 U/L (12-78); BILIRUBIN,DIRECT 0.3 MG/DL (0.0-0.2); BILIRUBIN,TOTAL 0.9 MG/DL (0.2-1.0); BLOOD UREA NITROGEN 15 MG/DL (7-18); CALCIUM LEVEL 9.7 MG/DL (8.5-10.1); CARBON DIOXIDE LEVEL 27 MEQ/L (21-32); CHLORIDE LEVEL 105 MEQ/L (98-107); CREATININE FOR GFR 0.93 MG/DL (0.70-1.30); FREE T4 1.11 NG/DL (0.76-1.46); GLOMERULAR FILTRATION RATE > 60.0 (>60); GLUCOSE, FASTING 80 MG/DL (70-100); MAGNESIUM LEVEL 1.9 MG/DL (1.8-2.4); PHOSPHORUS LEVEL 1.6 MG/DL (2.5-4.9); POTASSIUM SERUM 3.7 MEQ/L (3.5-5.1); SODIUM LEVEL 138 MEQ/L (136-145); TOTAL PROTEIN 6.9 GM/DL (6.4-8.2); VALPROIC ACID (DEPAKOTE) < 3.0 UG/ML (50.0-100.0)
== END 2019-11-16 19:00 | disposition home or self-care (01) ==
LOC: M ED 14:25
DX: R56.9 Unspecified convulsions (principal); Z91.19 Patient's noncompliance with other medical treatment and regimen; Z79.51 Long term (current) use of inhaled steroids; Z79.899 Other long term (current) drug therapy; Z88.6 Allergy status to analgesic agent

== ENCOUNTER 2020-01-08 11:27 | Emergency (ER) | payer OTHER, MEDICARE, MEDICAID ==
[~2020-01-08] VITALS: Ht 162.6 cm; Wt 85.9 kg
[2020-01-08] MEDS ORDERED: ISOVUE-370 76% 100ML VIAL As Ordered ONE (11:52)
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
[2020-01-08 14:30] VITALS: BP 132/71
--- NOTE | 2020-01-09 15:24 | ECGEPIP ---
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
--- NOTE | 2020-01-10 07:46 | ED PDOC ---
Post-Departure Follow-Up dr randy winters faxed formal reportof ct chest for fu Ramone Eaton MD Jan 10, 2020 07:46
== END 2020-01-08 14:45 | disposition home or self-care (01) ==
LOC: M ED 11:27 → EDBD 11:27 → M ED 14:45
DX: Z04.1 Encounter for examination and observation following transport accident (principal); G40.909 Epilepsy, unspecified, not intractable, without status epilepticus; D35.1 Benign neoplasm of parathyroid gland; S10.81XA Abrasion of other specified part of neck, initial encounter; S20.219A Contusion of unspecified front wall of thorax, initial encounter; V49.49XA Driver injured in collision with other motor vehicles in traffic accident, initial encounter; Y92.410 Unspecified street and highway as the place of occurrence of the external cause; Z79.899 Other long term (current) drug therapy; Z88.5 Allergy status to narcotic agent; Z88.8 Allergy status to other drugs, medicaments and biological substances; F17.210 Nicotine dependence, cigarettes, uncomplicated
CPT/HCPCS: 36415; 70450; 71260; 72125; 80047; 80164; 93005; 99284; Q9967

== ENCOUNTER 2020-01-18 20:27 | Emergency (ER) | payer MEDICARE, MEDICAID ==
[~2020-01-18] VITALS: Ht 180.3 cm; Wt 81.8 kg
[2020-01-18 21:38] LABS: BASO % 0.5 % (0.0-1.0); EOS # 0.1 10^3/uL (0.0-0.5); HEMATOCRIT 44.4 % (42.0-52.0); HEMOGLOBIN 13.9 g/dl (13.5-17.5); LYMPH # 1.8 10^3/uL (1.5-5.0); MEAN CORPUSCULAR HEMOGLOBIN 28.3 pg (27.0-33.0); MEAN CORPUSCULAR HGB CONC 31.3 g/dl (32.0-36.5); MEAN CORPUSCULAR VOLUME 90.4 fl (80.0-96.0); MONO # 0.5 10^3/uL (0.0-0.8); MONO % 8.8 % (0.0-5.0); NEUTROPHILS # 3.6 10^3/uL (1.5-8.5); NEUTROPHILS % 59.2 % (36.0-66.0); PLATELET COUNT, AUTOMATED 156 10^3/uL (150-450); RED BLOOD COUNT 4.91 10^6/uL (4.30-6.10)
[2020-01-18 22:08] LABS: BLOOD UREA NITROGEN 24 MG/DL (7-18); CARBON DIOXIDE LEVEL 29 MEQ/L (21-32); CHLORIDE LEVEL 108 MEQ/L (98-107); GLOMERULAR FILTRATION RATE > 60.0 (>60); GLUCOSE, FASTING 80 MG/DL (70-100); POTASSIUM SERUM 3.9 MEQ/L (3.5-5.1); SODIUM LEVEL 141 MEQ/L (136-145); VALPROIC ACID (DEPAKOTE) 98.6 UG/ML (50.0-100.0)
[2020-01-18] MEDS ORDERED: ISOVUE-370 76% 100ML VIAL As Ordered ONE (22:46)
--- NOTE | 2020-01-18 23:26 | REPVR ---
PROCEDURE INFORMATION: Exam: CT Head Without Contrast Exam date and time: 01/18/2020 10:57 PM Age: 44 years old Clinical indication: Altered mental status/memory loss; Confusion or disorientation TECHNIQUE: Imaging protocol: Computed tomography of the head without contrast. Radiation optimization: All CT scans at this facility use at least one of these dose optimization techniques: automated exposure control; mA and/or kV adjustment per patient size (includes targeted exams where dose is matched to clinical indication); or iterative reconstruction. COMPARISON: CT Head without contrast 2020-01-08 11:52 FINDINGS: Brain: Diffuse mild cerebral age related volume loss. Mild patchy low attenuation in the white matter compatible with mild chronic small vessel ischemic disease. No midline shift, mass, fluid collection, or evidence of hemorrhage. 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 Cerebral ventricles: Ventricular enlargement proportional to volume loss. Bones/joints: Unremarkable. No acute fracture. Paranasal sinuses: Visualized sinuses are unremarkable. No fluid levels. Mastoid air cells: Visualized mastoid air cells are well aerated. Soft tissues: Unremarkable. IMPRESSION: Mild involutional changes, no acute intracranial abnormality. Electronically signed by: Terrell Spivey On 01/18/2020 23:26:05 PM
--- NOTE | 2020-01-18 23:39 | REPVR ---
PROCEDURE INFORMATION: Exam: CT Chest With Contrast Exam date and time: 01/18/2020 10:57 PM Age: 44 years old Clinical indication: Chest pain; Type not specified; Additional info: Altered mental TECHNIQUE: Imaging protocol: Computed tomography of the chest with intravenous contrast. 3D rendering (Not supervised by radiologist): MIP and/or 3D reconstructed images were created by the technologist. Radiation optimization: All CT scans at this facility use at least one of these dose optimization techniques: automated exposure control; mA and/or kV adjustment per patient size (includes targeted exams where dose is matched to clinical indication); or iterative reconstruction. Contrast material: ISO; Contrast volume: 75 ml; Contrast route: INTRAVENOUS (IV); COMPARISON: CT Chest with contrast 2020-01-08 11:52 FINDINGS: Lungs: Unremarkable. No consolidation. No masses. Pleural space: Unremarkable. No pneumothorax. No pleural effusion. Heart: Unremarkable. No cardiomegaly. No pericardial effusion. Aorta: Unremarkable. No aortic aneurysm. Lymph nodes: Unremarkable. No enlarged lymph nodes. Bones/joints: Mild dextroconvex thoracic curvature. Soft tissues: Unremarkable. IMPRESSION: No acute findings. Electronically signed by: Terrell Spivey On 01/18/2020 23:38:58 PM
[2020-01-19 00:15] VITALS: BP 121/58
[2020-01-19] MEDS ORDERED: KEPP1TAB2 PO (04:52)
--- NOTE | 2020-01-19 08:34 | ECGEPIP ---
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
== END 2020-01-19 00:43 | disposition home or self-care (01) ==
LOC: M ED 20:27
DX: R56.9 Unspecified convulsions (principal); R07.9 Chest pain, unspecified; Z88.6 Allergy status to analgesic agent; Z88.8 Allergy status to other drugs, medicaments and biological substances; Z79.899 Other long term (current) drug therapy
CPT/HCPCS: 36415; 70450; 71260; 80048; 80164; 81001; 84443; 85025; 93005; 93041; 94760; 99285; Q9967

== ENCOUNTER 2020-01-19 03:10 | Emergency (ER) | payer MEDICARE, MEDICAID ==
[~2020-01-19] VITALS: Ht 162.6 cm; Wt 53.6 kg
[2020-01-19] MEDS ORDERED: levETIRAcetam INJection 1,000 MG in D5W 100 ML IV ONE (04:15)
[2020-01-19] MEDS ORDERED: KEPP1TAB2 PO (04:52)
[2020-01-19 05:45] VITALS: BP 108/60
== END 2020-01-19 06:07 | disposition home or self-care (01) ==
LOC: M ED 03:10
DX: G40.909 Epilepsy, unspecified, not intractable, without status epilepticus (principal); F17.200 Nicotine dependence, unspecified, uncomplicated; Z88.6 Allergy status to analgesic agent; Z88.8 Allergy status to other drugs, medicaments and biological substances
CPT/HCPCS: 96374; 99284; J1953

== ENCOUNTER → 2022-08-01 | Outpatient (CLI) | payer MEDICARE, MEDICAID ==
[~2022-08-01] MED LIST changes: +FLUT50SP17; -FLUTISP; +KEPP1TAB2 PO; +TIZA10TA PO; -TIZA4TAB4 PO
== END ==
LOC: M PLAIMG 12:51
PROVIDERS: ATTEND Nurse Practitioner Family
DX: M54.16 Radiculopathy, lumbar region (principal)

== ENCOUNTER 2022-10-07 08:28 | Outpatient (RCR) | payer MEDICAID, MEDICARE ==
[~2022-10-07 08:28] MED LIST changes: +DICY-61; -DICY10CA13
== END 2022-10-11 ==
LOC: M PT 08:28
PROVIDERS: ATTEND Orthopaedic Surgery
DX: M48.062 Spinal stenosis, lumbar region with neurogenic claudication (principal); M47.896 Other spondylosis, lumbar region

== ENCOUNTER 2022-10-17 09:52 | Outpatient (RCR) | payer MEDICARE | END 2022-11-11 | LOC: M PT 09:52 | PROVIDERS: ATTEND Orthopaedic Surgery | DX: M48.062 Spinal stenosis, lumbar region with neurogenic claudication (principal) ==

== ENCOUNTER → 2022-10-23 | Outpatient (CLI) | payer MEDICARE | LOC: M SOG 08:08 | PROVIDERS: ATTEND Orthopaedic Surgery | DX: M48.062 Spinal stenosis, lumbar region with neurogenic claudication (principal); M47.896 Other spondylosis, lumbar region; Z53.8 Procedure and treatment not carried out for other reasons ==

== ENCOUNTER → 2022-10-29 | Outpatient (CLI) | payer MEDICARE ==
[2022-10-29 09:26] LABS: BASO % 0.6 % (0.0-1.0); EOS # 0.1 10^3/uL (0.0-0.5); EOS % 1.9 % (0.0-3.0); HEMATOCRIT 44.2 % (42.0-52.0); LYMPH # 1.7 10^3/uL (1.5-5.0); LYMPH % 35.9 % (24.0-44.0); MEAN CORPUSCULAR HEMOGLOBIN 28.6 pg (27.0-33.0); MEAN CORPUSCULAR HGB CONC 31.7 g/dl (32.0-36.5); MEAN CORPUSCULAR VOLUME 90.2 fl (80.0-96.0); MONO # 0.4 10^3/uL (0.0-0.8); MONO % 8.6 % (2.0-8.0); NEUTROPHILS # 2.5 10^3/uL (1.5-8.5); PLATELET COUNT, AUTOMATED 157 10^3/uL (150-450); WHITE BLOOD COUNT 4.8 10^3/uL (4.0-10.0)
[2022-10-29 09:53] LABS: VALPROIC ACID (DEPAKOTE) 67.4 UG/ML (50.0-100.0)
[2022-10-29 09:55] LABS: ALBUMIN 3.6 G/DL (3.2-5.2); ALKALINE PHOSPHATASE 75 U/L (46-116); ALT/SGPT 13 U/L (7.0-40); AST/SGOT 9 U/L (<34); BILIRUBIN,TOTAL 0.4 MG/DL (0.3-1.2); BLOOD UREA NITROGEN 18 MG/DL (9-23); CALCIUM LEVEL 9.4 MG/DL (8.5-10.1); CARBON DIOXIDE LEVEL 30 MMOL/L (20-31); CHLORIDE LEVEL 104 MMOL/L (98-107); CREATININE FOR GFR 0.94 MG/DL (0.70-1.30); GLOMERULAR FILTRATION RATE > 60.0 (>60); GLUCOSE, FASTING 79 MG/DL (60-100); POTASSIUM SERUM 4.5 MMOL/L (3.5-5.1); SODIUM LEVEL 138 MMOL/L (136-145); TOTAL PROTEIN 6.5 G/DL (5.7-8.2)
[2022-10-29 09:57] LABS: VITAMIN B12 LEVEL 373 PG/ML (211-911)
== END ==
LOC: M LAB 08:48
DX: G40.219 Localization-related (focal) (partial) symptomatic epilepsy and epileptic syndromes with complex partial seizures, intractable, without status epilepticus (principal)